=== PATIENT | female | born 1955 | race Caucasian/White ===

== ENCOUNTER 2020-07-05 22:43 | Inpatient (IN) | payer MEDICAID, SELFPAY ==
[2020-07-05] VITALS (10 sets, daily range): BP systolic 88–107; BP diastolic 62–82; PULSE 93–104; RESP 12–21; TEMP 36; O2SAT 97–98
--- NOTE | ~2020-07-05 | US_ITS ---
EXAMINATION: US venous doppler LE RT EXAM DATE: 07/08/2020 10:58 INDICATION: Right leg edema. TECHNIQUE: Multiple grayscale, color flow and Doppler images of the right lower extremity deep venous system were obtained and reviewed. There is no prior study for comparison. FINDINGS: The right common femoral, femoral and profunda veins demonstrate normal color flow, respira tory variation, augmentation and compressibility. Compressibility, color flow confirmed within the r ight popliteal, posterior tibial, peroneal, and greater saphenous veins. IMPRESSION: 1. No right lower extremity deep venous thrombosis. Reviewed, dictated and finalized at location B.
--- NOTE | ~2020-07-05 | XR_ITS ---
EXAMINATION: XR chest 1V portable EXAM DATE: 07/06/2020 00:15 INDICATION: Shortness of breath nausea vomiting diarrhea, weakness. TECHNIQUE: Portable AP frontal chest x-ray was obtained. There is no prior study for comparison. FINDINGS: Mildly indistinct reticulation in the left lung zone could be developing edema or pneumonia . Clinical correlation. No confluent consolidation, pneumothorax or pleural effusion suspected. There are no osseous abnormalities identified. IMPRESSION: Indistinct left perihilar reticulation, possible mild edema or pneumonia. Reviewed, dictated and finalized at location A. IMPRESSION: Indistinct left perihilar reticulation, possible mild edema or pneu monia.
--- NOTE | ~2020-07-05 | US_ITS ---
EXAMINATION: US right upper quadrant EXAM DATE: 07/06/2020 11:18 INDICATION: Elevated liver function tests. TECHNIQUE: Multiple grayscale and Doppler images of the abdomen right upper quadrant were obtained (angela y a technologist who performed the scan) and subsequently reviewed. There is no prior study for katie gonsales. FINDINGS: Small amount of perihepatic ascites. The pancreatic head and body are normal in appearance. The pancreatic tail is not visualized. The l iver has normal echogenicity and contour. There are no focal liver lesions identified. There is no evidence of intrahepatic biliary duct dilation. There is normal hepatopedal direction portal venous flow, but with pulsatile high resistance waveform , which could be being transmitted from the heart, right heart failure, or could indicate portal hype rtension. Diameter is 16 mm which is borderline dilated. The right middle and left hepatic veins demo nstrated normal color flow. No right-sided hydronephrosis. Common bile duct measures 4 mm, which is normal. The gallbladder fossa is unremarkable. IMPRESSION: 1. High resistance pulsatile portal venous Doppler signal. Could indicate portal hypertension or rig ht heart failure. 2. Small amount of nonspecific perihepatic fluid. Reviewed, dictated and finalized at location A. IMPRESSION: 1. High resistance pulsatile portal venous Doppler signal. Could indicate port al hypertension or right heart failure. 2. Small amount of nonspecific perihepatic fluid.
--- NOTE | ~2020-07-05 | US_ITS ---
EXAMINATION: US renal BI EXAM DATE: 07/06/2020 11:20 INDICATION: Renal insufficiency. TECHNIQUE: Multiple grayscale and Doppler images of the kidneys were obtained (by a technologist who performed the scan) and subsequently reviewed. There is no prior study for comparison. FINDINGS: Right kidney: There is normal contour and echogenicity. It measures 10.4 x 4.2 x 5.0 centimeters. T here are no focal renal lesions identified. There is no hydronephrosis. Left kidney: There is normal contour and echogenicity. It measures 10.8 x 5.3 x 5.3 centimeters. Th ere are no focal renal lesions identified. There is no hydronephrosis. The bladder is collapsed with wall thickening, small free pelvic fluid surrounding it. IMPRESSION: 1. Sonographically unremarkable kidneys. 2. Collapsed bladder could indicate renal failure, poorly functioning kidneys. 3. Bladder wall thickening could indicate acute or chronic cystitis. Reviewed, dictated and finalized at location A.
--- NOTE | ~2020-07-05 | NM_ITS ---
EXAMINATION: NM huyen stress w perfusion DATE: 07/09/2020 13:51 INDICATION: Elevated troponin. Atrial fibrillation prior inferior wall infarct. TECHNIQUE: Rest images were obtained following intravenous administration of 9.1 mCi Tc99m tetrofosmi n (Myoview). The patient was infused intravenously with Lexiscan (Regadenoson). Then, 31.77 mCi Tc99m tetrofosmin (Myoview) was administered intravenously, and stress images were obtained. Data was javier nstructed into short axis and horizontal and vertical long axis SPECT images. Gated SPECT images were also obtained. COMPARISON: None. FINDINGS: Large moderate severity nonreversible perfusion defect involving the apex, apical inferior, mid inferior, basilar inferior, mid inferolateral and basilar inferolateral segments. There is a mil d reversible perfusion defect involving the basilar anterolateral segment consistent with ischemia. T here is an additional mild reversible perfusion defect at the apical lateral segment. There is left v entricular enlargement with global hypokinesis and moderately decreased left ventricular ejection fra ction measuring 26%. IMPRESSION: 1. Small regions of reversible ischemia at the basilar anterolateral segment and apical lateral segme nt. 2. Large moderate severity infarct involving the apical, apical inferior, mid inferior, basilar infer ior, mid inferolateral and basilar inferolateral segments. 3. Small reversible perfusion defect at the 2. Left ventricular margin with global hypokinesis and moderately decreased ejection fraction measuri ng 25%. Reviewed, dictated and finalized at location A. IMPRESSION: 1. Small regions of reversible ischemia at the basilar anterolateral segment an d apical lateral segment. 2. Large moderate severity infarct involving the apical, apical inferior, mid i nferior, basilar inferior, mid inferolateral and basilar inferolateral segments . 3. Small reversible perfusion defect at the 2. Left ventricular margin with global hypokinesis and moderately decreased eje ction fraction measuring 25%.
--- NOTE | ~2020-07-05 | CT_ITS ---
EXAMINATION: CT abdomen pelvis w con EXAM DATE: 07/06/2020 01:34 INDICATION: Nausea and vomiting. TECHNIQUE: Spiral CT of the abdomen and pelvis was performed following intravenous injection of 100 m L Omnipaque 350. Axial, coronal and sagittal images were reviewed. The dose-length product (DLP) fo r this examination was 604.58 mGy-cm. The exposure was tailored according to patient size (auto mA e xposure control), and iterative reconstruction (ASIR) was used as additional dose reduction technique . There is no prior study for comparison. FINDINGS: Gallbladder not identified, patient likely has had cholecystectomy. There is fat stranding surroundin g the duodenum, in the gallbladder fossa, and mild fat stranding around the pancreatic head, in the r etroperitoneum. Periportal edema and small amount of perihepatic fluid. Liver, spleen, right adrenal gland unremarkable. There is a left adrenal gland nodule enhancing hete rogeneously measuring 4.0 cm, indeterminate. Should be further evaluated with abdominal MRI examinati on once acute symptoms resolve. Multiple pelvic calcifications probably phleboliths given there is no hydronephrosis. Portal and splenic veins are patent. Kidneys enhance symmetrically. There is no hy dronephrosis. The uterus is unremarkable. The bladder is unremarkable. There is no retroperitone al or pelvic lymphadenopathy. There is moderate to severe scattered arteriosclerotic disease with n arrowing of the mesenteric, renal arteries. Rectal prominence, could be prolapse but rectal cancer not excludable. The appendix is normal. The s tomach and small bowel are unremarkable. There is expected amount of colonic stool. No free intrap eritoneal gas. Borderline cardiomegaly. Small to moderate right, small left pleural effusions. Some interlobular septal thickening, appearance most consistent with mild pulmonary edema. The lung base s are unremarkable. There are no osteoblastic or osteolytic lesions identified. IMPRESSION: 1. Moderate amount of nonspecific fat stranding in the right upper quadrant, surrounding duodenum, i n the gallbladder fossa and around pancreatic head. Consider peptic ulcer disease, acute pancreatitis . No discrete duodenal wall edema identified. 2. Nonspecific periportal edema. 3. Indeterminate left adrenal gland lesion; follow-up nonemergent MRI recommended once acute symptom s resolve. 4. Small to moderate right, small left pleural effusions. Probable mild pulmonary edema. 5. Rectal prominence, could be prolapse but cancer not excludable. Reviewed, dictated and finalized at location A. IMPRESSION: 1. Moderate amount of nonspecific fat stranding in the right upper quadrant, s urrounding duodenum, in the gallbladder fossa and around pancreatic head. Consi jarett peptic ulcer disease, acute pancreatitis. No discrete duodenal wall edema i dentified. 2. Nonspecific periportal edema. 3. Indeterminate left adrenal gland lesion; follow-up nonemergent MRI recommen ded once acute symptoms resolve. 4. Small to moderate right, small left pleural effusions. Probable mild pulmon chantal edema. 5. Rectal prominence, could be prolapse but cancer not excludable.
--- NOTE | ~2020-07-05 | US_ITS ---
EXAMINATION: US art doppler w press SUNITA DELGADO EXAM DATE: 07/08/2020 10:58 INDICATION: Bilateral leg numbness. TECHNIQUE: Segmental pressures and plethysmographic and Doppler waveforms of the brachial and lower e xtremity arteries were obtained. There is no prior study for comparison. FINDINGS: Right and left brachial artery pressures of 83 mm Hg and 94 mm Hg, respectively, are concordant (norm al difference <= 30 mmHg). RIGHT LEG: The ankle-brachial index (ONOFRE) is 0.69 (normal >= 0.9-1). The great toe-brachial index (TBI) is 0.80 (normal >= 0.65). The lower extremity ratios, segmental pressure gradients as follows; Dorsalis pedis: 0.50 (47 mmHg). Posterior tibial: 0.69 (65 mmHg). (Normal gradients <= 20-30 mmHg between adjacent levels on the same leg or the same levels on the two legs). Arterial waveforms are biphasic through popliteal, monophas ic below. LEFT LEG: The ankle-brachial index (ONOFRE) is 0.64 (normal >= 0.9-1). The great toe-brachial index (TBI) is 0.78 (normal >= 0.65). The lower extremity ratios, segmental pressure gradients as follows; Dorsalis pedis: 0.64 (60 mmHg). Posterior tibial: 0.54 (51 mmHg). (Normal gradients <= 20-30 mmHg between adjacent levels on the same leg or the same levels on the two legs). Arterial waveforms are essentially monophasic. IMPRESSION: 1. Right ankle-brachial index 0.69 mildly decreased. 2. Left ankle-brachial index 0.64, mildly decreased. 3. Segmental pressures as above. Reviewed, dictated and finalized at location B.
--- NOTE | ~2020-07-05 | XR_ITS ---
XR chest 2V DATE: 07/08/2020 14:50 INDICATION: Congestive heart failure TECHNIQUE: AP and lateral views COMPARISON: 07/06/2020 portable AP chest FINDINGS: Cardiomegaly. Coronary atherosclerotic calcification. Mild aortic tortuosity. No hilar or m ediastinal enlargement. No pulmonary infiltrate or consolidation, pleural effusion or pulmonary vascu lar congestion or pneumothorax. Diffuse osteopenia. IMPRESSION: Cardiomegaly; no active pulmonary disease Reviewed, dictated and finalized at location A.
--- NOTE | 2020-07-05 23:05 | ECG_ITS ---
Measurements Intervals [place] Rate: 99 P: 43 PA: 184 QRS: -56 QRSD: 140 T: 116 QT: 396 QTc: 508 Interpretive Statements SINUS RHYTHM VENTRICULAR PREMATURE COMPLEX RIGHT BUNDLE BRANCH BLOCK LEFT ANTERIOR FASCICULAR BLOCK LEFT VENTRICULAR HYPERTROPHY AND ST-T CHANGE ST-T WAVE ABNORMALITY IN HIGH LATERAL LEADS- CONSIDER ISCHEMIA BASELINE WANDER- I, AVR, AVL, AVF, V1 ABNORMAL ECG Electronically Signed On 07-06-2020 7:30:30 CDT by Avinash Roman D.O.
--- NOTE | 2020-07-05 23:06 | ED.NAVMDI ---
HPI - Nausea/Vomiting/Diarrhea General Chief complaint: Nausea/Vomiting/Diarrhea Stated complaint: n/v Time Seen by Provider: 07/05/20 22:43 Source: patient Mode of arrival: EMS Limitations: no limitations History of Present Illness HPI Narrative: This patient is a 65 year old female with history of DM, HTN, CHF, and COPD who presents for evaluation of nausea and vomiting. She states she has been vomiting for the past 24 hours. She has decreased appetite, but she denies abdominal pain, or fever. She states she is not having diarrhea but her stools are slightly loose. She reports chronic sob and cough. She denies chest pain. She denies loss of taste or smell and she denies contact with covid positive person. MD elicited complaint: nausea and vomiting Related Data Home Medications Medication Instructions Recorded Confirmed furosemide 40 mg PO DAILY 07/05/20 07/06/20 hydrocodone-acetaminophen 1 tablet PO Q8H PRN 07/05/20 07/06/20 lisinopril 2.5 mg PO HS 07/05/20 07/06/20 metformin 500 mg PO BID 07/05/20 07/06/20 metoprolol succinate 25 mg PO DAILY 07/05/20 07/06/20 nicotine 1 patch TRANSDERMAL DAILY 07/05/20 07/06/20 potassium chloride 20 meq PO DAILY 07/05/20 07/06/20 Allergies Allergy/AdvReac Type Severity Reaction Status Date / Time No Known Allergies Allergy Verified 07/06/20 04:03 Review of Systems Review of Systems: All systems reviewed & are unremarkable except as noted in HPI and below Constitutional: Constitutional: Denies chills and Denies fever(s) Cardiovascular: Cardiovascular: Denies chest pain Respiratory: Respiratory: Reports cough (chronic) and Reports dyspnea (chronic) Gastrointestinal: Gastrointestinal: Denies abdominal pain, Denies diarrhea, Reports nausea and Reports vomiting Genitourinary: Genitourinary: Denies nocturia and Denies dysuria [facility] Past Medical History Medical History (Updated 07/06/20 @ 06:09 by Hina Yeung MD) CHF (congestive heart failure) COPD (chronic obstructive pulmonary disease) Diabetes mellitus Hypertension Surgical History Surgical History (Updated 07/05/20 @ 23:08 by Hina Yeung MD) History of cholecystectomy Social History Social History Smoking packs per day: 1 Smoking cigarettes per day: 20.0 Years smoked: 55 Smoking pack-years: 55.00 Smoking status: Heavy tobacco smoker Tobacco type: cigarettes Second hand tobacco smoke exposure: No Alcohol intake: former Substance use: current Substance use type: marijuana Last use: 07/04/20 Gender identity (if verbalized by the patient): Female Sexual Orientation (if Verbalized by the Patient): Straight or Heterosexual Spiritual care concerns: No Exam Const: General: alert and ill appearing Orientation/consciousness: patient oriented x3 HENMT: Head: normocephalic and atraumatic Face and sinus: sinuses nontender and normal transillumination of the sinuses Teeth and gingiva: edentulous Eyes: Pupils: Equal, round and reactive pupils present EOM: EOMs intact bilaterally Chest: Chest palpation & inspection: normal inspection of the chest Resp: Effort & Inspection: normal respiratory effort Auscultation: clear to auscultation bilaterally and diminished lung sounds Cardio: Rate: regular rate Rhythm: regular rhythm Heart sounds: no murmurs GI: GI Palp: Yes Soft to palpation, No Tenderness to palpation present (GI), No Guarding due to palpation present (GI) and No Rigid due to palpation Skin: General skin exam: normal color Rashes: no rashes Neuro: General: patient oriented x3 and moves all extremities Extrem: General: normal to inspection and no pedal edema Psych: Mental Status: mental status grossly normal Affect: normal affect Course Reevaluation(s) Reevaluation #1: PAtient has no complaints. She denies nausea and vomiting. She will be admitted for evaluation of lactic acidosis, duodenitis. Lactic acidosis may be from her metformin.
[2020-07-05] MEDS: SODIUM CHLORIDE 0.9% IV 500 ML 999 ML IV CONT (23:35)
[2020-07-05] MEDS: ONDANSETRON INJ 4 MG/2 ML VIAL IV PUSH (23:35)
[2020-07-05 23:45] LABS: Alveolar/Arterial O2 Gradient 31.2 mmHg; Carboxyhemoglobin 1.3 % THb (0-2.0); Fractional Inspired Oxygen 21 %; HCO3 ABG 17.2 mEq/l (22.0-26.0); Methemoglobin ABG 0.3 %THb (0-1.5); Oxygen Content ABG 21.3 %vol (16.0-22.0); Oxygen Saturation ABG 95.5 % (95.0-100.0); Oxyhemoglobin 93.9 % THb (90.0-100.0); PCO2 ABG 31.8 mmHg (35.0-45.0); PO2 ABG 80.5 mmHg (80.0-100.0); PO2 FiO2 Ratio Arterial Blood 3.83 %; Reduced Hemoglobin 4.5 %THb (0-5.0); Total Hemoglobin 16.1 g/dL (12.0-18.0); pH ABG 7.352 (7.350-7.450)
[2020-07-05 23:46] LABS: Device ROOM AIR; Modified Allen's Test Pass; Site Drawn LEFT BRACHIAL
[2020-07-06] VITALS (39 sets, daily range): BP systolic 92–121; BP diastolic 59–98; PULSE 93–106; RESP 16–25; TEMP 35.9–36.8; O2SAT 92–100; BMI 26.5
[2020-07-06 00:02] LABS: Basophils Percent Auto 0.2 % (0.2-1.2); Hematocrit 47.1 % (37.0-47.0); Hemoglobin 15.8 g/dL (12.0-15.0); Immature Granulocyte Absolute 0.12 K/mm3 (0.00-0.031); Immature Granulocyte Percent A 0.7 % (0-0.5); Lymphocytes Absolute Auto 1.59 K/mm3 (0.9-3.2); Lymphocytes Percent Auto 9.5 % (18.3-44.2); Mean Corpuscular HGB Conc 33.5 g/dl (32-36); Mean Corpuscular Hemoglobin 31.9 pg (26-34); Mean Platelet Volume 11.5 fl (7.4-10.4); Monocytes Absolute Auto 0.9 K/mm3 (0.1-0.6); Monocytes Percent Auto 5.2 % (2.6-8.5); Neutrophils Absolute Auto 14.1 K/mm3 (1.3-6.7); Neutrophils Percent Auto 84.4 % (45.5-73.1); Platelet Count Result 266 k/mm3 (150-375); Red Blood Count 4.96 M/mm3 (4.2-5.4); Red Cell Distribution Width 14.3 % (11.5-14.5); White Blood Count 16.7 K/mm3 (4.5-10.0)
[2020-07-06 00:10] LABS: Add Urine Microscopic? YES; Appearance Urine Cloudy (Clear); Bilirubin Urine 1+ (Negative); Blood Urine Negative (Negative); Color Urine Amber (Yellow); Glucose Urine UA 3+ mg/dL (Negative); Ketones Urine Negative (Negative); Leukocyte Esterase Ur Negative LEU/UL (Negative); Mucus Urine Few /lpf; Nitrate Urine Negative (Negative); Protein Urine 2+ mg/dL (Negative); Specific Grav Ur 1.021 (1.001-1.035); Squamous Epithelial Cell Urine Moderate /hpf (Few)
--- NOTE | 2020-07-06 00:12 | PC.NURSE ---
Patient's son calls to get an update on patient. He leaves his phone number [phone].
[2020-07-06 00:16] LABS: Alanine Aminotransferase 55 U/L (4-35); Albumin Level 3.9 g/dL (3.5-5.1); Alkaline Phosphatase 75 U/L (38-126); Anion Gap 14 mmol/L (8-16); Aspartate Amino Transferase 344 U/L (14-36); Bilirubin,Total 1.8 mg/dL (0.2-1.3); Blood Urea Nitrogen 22 mg/dL (7-17); Calcium 9.5 mg/dL (8.4-10.2); Carbon Dioxide 23 mmol/L (22-30); Chloride 99 mmol/L (98-107); Estimated CRCL calculation 30 ml/min; Estimated Glomerular Filt Rate 38; Glucose 379 mg/dL (65-105); Lipase 25 U/L (23-300); Potassium 4.3 mmol/L (3.4-5.0); Sodium 136 mmol/L (137-145)
[2020-07-06] MEDS: SODIUM CHLORIDE 0.9% IV 1,000 ML 999 ML IV CONT (00:53)
[2020-07-06] MEDS: METOCLOPRAMIDE HCL INJ 10 MG/2 ML VIAL IV PUSH (00:54)
[2020-07-06 02:05] LABS: Lactic Acid Reflex 5.8 mmol/L (0.7-2.1)
[2020-07-06 02:06] LABS: Creatine Kinase 1366 U/L (30-135)
[2020-07-06] MEDS: PANTOPRAZOLE SODIUM IV 40 MG VIAL IV PUSH ×3 (03:14→21:27)
--- NOTE | 2020-07-06 03:14 | PC.NURSE ---
Lab contacted, Carmen stated she will be up to draw patient's blood cultures.
--- NOTE | 2020-07-06 03:28 | PC.NURSE ---
Patient ER and taken to the floor at 0328.
--- NOTE | 2020-07-06 03:48 | PC.NURSE ---
This patient, Courtney Guzman, was admitted to IMU Room 231-01 on 07/06/20 at 0334. Patient/family oriented to hospital policies and general routines including ID bracelet, bed and alarms, visiting hours, pain management, procedures, bathroom and other care routines, personal items, smoking policy, room service/diet, and visiting hours. Valuables list has been completed. Information on how to activate the Rapid Response Team has been discussed. Patient/Family are encouraged to report perceived risks to care and to ask questions if they do not understand what they are told or what they should do.
[2020-07-06] MEDS: SODIUM CHLORIDE 0.9% IV 1,000 ML 75 ML IV CONT ×2 (04:20→17:30)
[2020-07-06 04:26] LABS: Reflex Lactic Acid Yes or No Add Lactic
[2020-07-06] MEDS: ONDANSETRON INJ 4 MG/2 ML VIAL IV PUSH (05:12)
[2020-07-06 05:17] LABS: Lactic Acid 3.8 mmol/L (0.7-2.1)
--- NOTE | 2020-07-06 07:42 | PM.IMHP ---
H&P: HPI History of Present Illness Date/Time: 07/06/20 07:42 THIS PATIENT WAS PLACED IN OBSERVATION Chief complaint: nausea, vomiting, lactic acidosis Narrative: Courtney Guzman is a 65 year old female with CHF, COPD and DM here for nausea and vomiting. Patient developed soft stools about 2 days prior to admission. No katt diarrhea. She was having 2-3 bowel movements a day. One day prior to admission, patient developed nausea and vomiting. She denies any abdominal pain. She denies hematemesis. No fever or chills. No melena or hematochezia. She has never had a colonoscopy or EGD. No dysuria or hematuria. No new medications. She does not believe the nausea was related to food that she ate. Tried Pepto-Bismol without benefit. Nothing seemed to make the nausea better or worse. She is unsure if the nausea worsened with food. She has a chronically poor appetite. She states she has lost about 100 lb over the past 2 years and possibly 30 lb this year. She has a chronic, nonproductive cough but this is no change recently. She also has shortness of breath at times usual worse with activity. Again no changes in the shortness of breath chronicity. No chest pain or palpitations. She is having financial difficulties. She lost her job and is going through a divorce. She has been staying with friends sleeping on the couch over the past few days since she was unable to afford her rent around the beginning of the month. She does take her medications off and on even when there is no financial issue. She denies weakness in her arms or legs. She does have peripheral neuropathy with numbness and tingling in her feet related to the DM. No history of seizures or strokes. She does not check her glucose at home. She does have depression at times but has not been diagnosed with this. No loss of taste or smell. She denies COVID exposure. No myalgias. Last hospitalized at [facility] 2 months ago for 'breathing problems'. No claudication symptoms. No vision changes, odynophagia or dysphagia. No hx or exposure to HIV or hepatitis. She presented to the emergency room with complaints of persistent nausea and vomiting. In the emergency room patient was hemodynamically stable. She was mildly tachycard[place] [address]. glucose was 379. Lactic acid was 5.8. Creatinine 1.4. Her AST and ALT were elevated. Her total creatinine kinase was 1366. Lipase was normal. Urinalysis showed 3+ glucose and 3-5 red cells but negative for blood. Chest x-ray appears clear. CT scan showing either peptic ulcer disease or gastritis / duodenitis. Incidental finding of a left adrenal lesion. Peripheral arterial disease noted as well. Patient was treated with IV fluids, Reglan, Zofran. Protonix and started on Zosyn. She was admitted for further care. Repeat lactic acid level has improved. Review of Systems Review of Systems: All systems reviewed & are unremarkable except as noted in HPI and below PMFSH Past Medical History Medical History (Updated 07/08/20 @ 08:45 by Clinton Dudley MD) Abnormal CT scan, gastrointestinal tract Arthritis CHF (congestive heart failure) Chronic pain syndrome related to hand arthritis COPD (chronic obstructive pulmonary disease) Diabetes mellitus Hypertension Peripheral neuropathy Weight loss Surgical History Surgical History History of x2 History of cholecystectomy History of D&C Family History Family History Mother Diabetes mellitus Acute myocardial infarction Congestive heart failure TIA (transient ischemic attack) Hypertension Sibling Congestive heart failure Chronic obstructive pulmonary disease Diabetes mellitus Social History Social History (Updated 07/06/20 @ 08:41 by Clinton Dudley MD) Social History: patient smokes a pack a day for past 55 years. She drank
[2020-07-06 08:40] LABS: Glucose Point of Care 262 (65-105)
[2020-07-06] MEDS: INSULIN ASPART (*BKC) 100 UNITS/ML SUB-Q (09:30)
[2020-07-06 09:55] LABS: Hemoglobin A1C 8.1 % (<5.7)
[2020-07-06 10:02] LABS: Bilirubin Indirect 0.9 mg/dL (0-1.1); Cholesterol 176 mg/dL (0-200); HDL Direct 49 mg/dL; Lactic Acid Reflex 2.8 mmol/L (0.7-2.1); Triglycerides 149 mg/dL (<150)
[2020-07-06 10:13] LABS: LDL Cholesterol Direct 86 mg/dL
[2020-07-06 10:51] LABS: Hepatitis B Surface Antigen Negative (Negative)
[2020-07-06 10:53] LABS: Thyroid Stimulating Hormone Reflex 0.553 uIU/mL (0.465-4.68)
[2020-07-06 10:57] LABS: HAV RESULT Negative (Negative); Hepatitis B Core IgM Result Negative (Negative)
[2020-07-06 11:08] LABS: Hepatitis C Virus Antibody Negative (Negative)
--- NOTE | 2020-07-06 11:52 | WPDGICN ---
Assessment and Plan Assessment and plan (1) Nausea & vomiting: Code(s): R11.2 - Nausea with vomiting, unspecified Status: Acute Assessment and Plan: probably peptic ulcer disease (abnormal CT scan in duodenum), ppi for now. She also had elevated lactic acid with liver enzymes, will trend continue with supportive care, ppi and will do EGD on Wednesday no signs of bleeding (2) Abnormal CT scan, gastrointestinal tract: Code(s): R93.3 - Abnormal findings on diagnostic imaging of other parts of digestive tract Status: Acute Assessment and Plan: duodenum but also in rectum (patient denies obvious prolapse, change in bowel habits but she never had a colonoscopy), also concerning weight loss. (3) Leukocytosis: Code(s): D72.829 - Elevated white blood cell count, unspecified Status: Acute Assessment and Plan: continue with supportive care, no fever trend labs blood cultures pending (4) Rhabdomyolysis: Code(s): M62.82 - Rhabdomyolysis Status: Acute Assessment and Plan: no history of falls repeat in am (5) Acidosis, lactic: Code(s): E87.2 - Acidosis Status: Acute Assessment and Plan: trending down, no abdominal pain (6) Elevated LFTs: Code(s): R79.89 - Other specified abnormal findings of blood chemistry Status: Acute Assessment and Plan: hepatitis panel negative, no etoh abuse monitor and trend labs (7) Renal insufficiency: Code(s): N28.9 - Disorder of kidney and ureter, unspecified Status: Acute Assessment and Plan: probably dehydration, supportive care (8) Tobacco abuse: Code(s): Z72.0 - Tobacco use Status: Acute Assessment and Plan: quit smoking (9) COPD (chronic obstructive pulmonary disease): Code(s): J44.9 - Chronic obstructive pulmonary disease, unspecified Status: Acute GI Consult Note Consult date/time: 07/06/20 11:52 Reason for consult: N/V, weight loss, abnormal CT scan a/p HPI: Courtney Guzman is a 65 year old female with history of CHF, COPD, smoker and DM who came to hospital with 2 days of intractable nausea and vomiting. She tried Pepto-Bismol without benefit, also has poor appetite and has lost about 100 lb over the past 2 years. Denies sick contacts. 2 days ago had soft stools but no diarrhea, she says that at baseline she is regular. Denies eoth abuse, no history of liver disease, no sick contacts. Blood work in ER showed wbc 16k, lactic acid 5 now down to 2.8, also elevated transaminases with bili 1.8, CK 1300 (denies h/o falls) and normal lipase, hepatitis negative. Also abnormal CT scan a/p that showed moderate amount of nonspecific fat stranding in the right upper quadrant, surrounding duodenum, in the gallbladder fossa and around pancreatic head, indeterminate left adrenal gland lesion, rectal prominence, could be prolapse but cancer not excludable. She was admitted to hospital, today she is feeling better but still with lack of appetite. She denies any abdominal pain, fever, chills, melena or hematochezia. She has never had a colonoscopy or EGD. Review of Systems Constitutional: Constitutional: Reports fatigue, Denies headache(s), Reports poor appetite and Reports weight loss Eyes: Eyes: Denies blurry vision ENT: Reports Normal hearing present, Denies headache(s) and Denies neck pain Cardiovascular: Cardiovascular: Denies chest pain and Denies dyspnea Respiratory: Respiratory: Denies dyspnea Gastrointestinal: Gastrointestinal: Denies abdominal pain, Reports nausea and Reports vomiting Genitourinary: Genitourinary: Denies flank pain Musculoskeletal: Musculoskeletal: Denies neck pain Integumentary/Breasts: Skin/Breast: Denies dry skin Neurologic: Reports Normal hearing present, Denies headache(s) and Denies weakness Psychiatric: Psychiatric: Reports depression Endocrine: Endocrine: Denies change in body appearance Hematologic/Lymph
[2020-07-06 12:43] LABS: Reflex Lactic Acid Yes or No Add Lactic
[2020-07-06 12:47] LABS: Glucose Point of Care 227 (65-105)
[2020-07-06 13:22] LABS: Folic Acid 9.9 ng/mL (2.76->20)
[2020-07-06 13:43] LABS: Lactic Acid 2.4 mmol/L (0.7-2.1)
[2020-07-06 16:36] LABS: Glucose Point of Care 77 (65-105)
[2020-07-06 20:25] LABS: Glucose Point of Care 162 (65-105)
[2020-07-07] VITALS (18 sets, daily range): BP systolic 90–111; BP diastolic 65–78; PULSE 75–100; RESP 16–24; TEMP 35.8–36.6; O2SAT 92–99
--- NOTE | 2020-07-07 00:07 | PCRCNOTE ---
Apnea link terminated after multiple attempts. Patient removed apnea link repeatedly.
[2020-07-07 00:17] LABS: Glucose Point of Care 157 (65-105)
[2020-07-07 05:29] LABS: Basophils Percent Auto 0.1 % (0.2-1.2); Hematocrit 43.4 % (37.0-47.0); Hemoglobin 14.5 g/dL (12.0-15.0); Immature Granulocyte Absolute 0.09 K/mm3 (0.00-0.031); Immature Granulocyte Percent A 0.5 % (0-0.5); Lymphocytes Percent Auto 8.6 % (18.3-44.2); Mean Corpuscular HGB Conc 33.4 g/dl (32-36); Mean Corpuscular Hemoglobin 31.7 pg (26-34); Mean Corpuscular Volume 94.8 fl (80-100); Monocytes Absolute Auto 1.1 K/mm3 (0.1-0.6); Monocytes Percent Auto 6.5 % (2.6-8.5); Neutrophils Absolute Auto 14.6 K/mm3 (1.3-6.7); Neutrophils Percent Auto 84.3 % (45.5-73.1); Platelet Count Result 219 k/mm3 (150-375); Red Blood Count 4.58 M/mm3 (4.2-5.4); Red Cell Distribution Width 14.3 % (11.5-14.5); White Blood Count 17.4 K/mm3 (4.5-10.0)
[2020-07-07] MEDS: ONDANSETRON INJ 4 MG/2 ML VIAL IV PUSH ×3 (06:05→21:10)
[2020-07-07 06:13] LABS: Glucose Point of Care 163 (65-105)
[2020-07-07 06:47] LABS: Alanine Aminotransferase 394 U/L (4-35); Albumin Level 3.5 g/dL (3.5-5.1); Alkaline Phosphatase 70 U/L (38-126); Anion Gap 14 mmol/L (8-16); Aspartate Amino Transferase 626 U/L (14-36); Bilirubin,Total 1.4 mg/dL (0.2-1.3); Blood Urea Nitrogen 31 mg/dL (7-17); CRP 7.1 mg/dL (<1.0); Calcium 8.9 mg/dL (8.4-10.2); Carbon Dioxide 17 mmol/L (22-30); Chloride 99 mmol/L (98-107); Creatine Kinase 497 U/L (30-135); Estimated CRCL calculation 40 ml/min; Estimated Glomerular Filt Rate 45; Glucose 150 mg/dL (65-105); Magnesium 1.8 mg/dL (1.6-2.3); Phosphorus 4.5 mg/dL (2.5-4.5); Potassium 4.5 mmol/L (3.4-5.0); Sodium 130 mmol/L (137-145)
[2020-07-07 06:48] LABS: Lactate Dehydrogenase 3177 U/L (313-618)
[2020-07-07] MEDS: oxyCODONE HCL (*CRX) 5 MG TAB IR PO ×3 (08:38→21:10)
[2020-07-07] MEDS: PANTOPRAZOLE SODIUM IV 40 MG VIAL IV PUSH ×2 (08:38→21:10)
--- NOTE | 2020-07-07 11:30 | WPDGIPROGNO ---
Progress Note: A&P Assessment and Plan (1) Nausea & vomiting: Code(s): R11.2 - Nausea with vomiting, unspecified Status: Acute Assessment and Plan: still nauseous, abnormal CT scan ? duodenitis, also noted elevated liver enzymes will do egd tomorrow (2) Elevated LFTs: Code(s): R79.89 - Other specified abnormal findings of blood chemistry Status: Acute Assessment and Plan: denies etoh abuse however ast/alt>2, ultrasound showed igh resistance pulsatile portal venous Doppler signal. Could indicate portal hypertension or right heart failure, will assess tomorrow with egd if varices or PHG ? cirrhosis if no major findings and still elevated lft's then consider mrcp (also found lesion in adrenal gland and radiologist recommending mri at some point) hepatitis panel negative (3) Abnormal CT scan, gastrointestinal tract: Code(s): R93.3 - Abnormal findings on diagnostic imaging of other parts of digestive tract Status: Acute Assessment and Plan: she also needs a colonoscopy, will do it tomorrow h/o weight loss and abnormal finding in rectum (4) Duodenitis: Code(s): K29.80 - Duodenitis without bleeding Status: Acute Assessment and Plan: on ppi for now, antiemetics prn lipase was normal (5) Weight loss: Code(s): R63.4 - Abnormal weight loss Status: Acute (6) Leukocytosis: Code(s): D72.829 - Elevated white blood cell count, unspecified Status: Acute Assessment and Plan: still high, also high crp normal lactic acid today on antibiotics Subjective Date/time seen: 07/07/20 11:30 Interval history: she is still nauseous today. Review of Systems Review of Systems: All systems reviewed & are unremarkable except as noted in HPI and below Exam Const: General: comfortable and no acute distress HENMT: General nose exam: Normal nares present Eyes: General: appearance normal, both eyes and all related structures Neck: Neck: no JVD Resp: Auscultation: clear to auscultation bilaterally Cardio: Rate: regular rate Rhythm: regular rhythm GI: Inspection: non-distended GI Palp: Yes Soft to palpation Skin: General skin exam: normal color Neuro: General: gait normal Speech: normal speech Extrem: General: normal to inspection Psych: Mental Status: mental status grossly normal Objective Data Vital Signs Vital Signs: Vital Signs - 24 hr 07/06/20 12:00 07/06/20 12:55 07/06/20 14:00 Temperature 96.9 F L Pulse Rate 94 96 102 H Respiratory Rate 20 Blood Pressure 107/77 Pulse Oximetry 100 07/06/20 16:00 07/06/20 16:53 07/06/20 18:00 Temperature 96.8 F L Pulse Rate 103 H 100 101 H Respiratory Rate 21 H Blood Pressure 92/71 L Pulse Oximetry 99 07/06/20 19:50 07/06/20 20:00 07/06/20 22:00 Temperature 97.5 F L Pulse Rate 100 100 101 H Respiratory Rate 20 20 Blood Pressure 94/60 L Pulse Oximetry 99 99 07/06/20 23:43 07/07/20 00:00 07/07/20 01:54 Temperature 97.5 F L Pulse Rate 100 100 100 Respiratory Rate 20 20 Blood Pressure 93/71 L Pulse Oximetry 92 92 07/07/20 03:22 07/07/20 04:00 07/07/20 06:00 Temperature 97.7 F Pulse Rate 94 94 99 Respiratory Rate 16 16 Blood Pressure 111/65 Pulse Oximetry 99 99 07/07/20 08:50 Temperature 96.4 F L Pulse Rate 94 Respiratory Rate 16 Blood Pressure 110/74 Pulse Oximetry 97 Intake/Output Intake/Output: Intake & Output 07/04/20 07/05/20 07/06/20 07/07/20 23:59 23:59 23:59 23:59 Intake Total 4250 350 Output Total 50 500 200 Balance -50 3750 150 Meds/Results Medications: Active Medications Generic Name Dose Route Start Last Admin Trade Name Freq PRN Reason Stop Dose Admin Dextrose 12.5 gm 07/06/20 09:11 Dextrose 50% Syringe IV PUSH PRN PRN Hypoglycemia Protocol Glucagon 1 mg 07/06/20 09:11 Glucagon For Inj IM PRN PRN Hypoglycemia Protocol Glucos
[2020-07-07 12:19] LABS: Glucose Point of Care 250 (65-105)
[2020-07-07] MEDS: INSULIN ASPART (*BKC) 100 UNITS/ML SUB-Q ×2 (13:11→17:26)
--- NOTE | 2020-07-07 14:04 | PM.IMPN ---
Progress Note: A&P Assessment and Plan (1) Sepsis: Code(s): A41.9 - Sepsis, unspecified organism Status: Acute Assessment and Plan: Patient with sepsis symptoms present on admission with elevated white count tachycardia and lactic acidosis. Lactic acid level trended down to normal. Etiology probably related to upper GI etiology. Consider gastritis or gastroenteritis or pancreatitis. Continue Zosyn for now. Follow white count (2) Nausea & vomiting: Code(s): R11.2 - Nausea with vomiting, unspecified Status: Acute Assessment and Plan: Patient with persistent nausea and vomiting that appears to be self-induced. She was educated in the benefits of not performing self induced vomiting. Continue current diet. Zofran available as needed for nausea. (3) Duodenitis: Code(s): K29.80 - Duodenitis without bleeding Status: Acute Assessment and Plan: CT scan showing moderate amount of nonspecific fat stranding in the right upper quadrant surrounding the duodenum, in the gallbladder fossa and around pancreatic head. Consider peptic ulcer disease, acute pancreatitis. Cannot exclude peptic ulcer disease. Appreciate GI input. Repeat Lipase. Continue Protonix. Continue IV antibiotics for now. EGD planned for tomorrow. [place] also planned since CT scan also showing rectal prominence. (4) Elevated LFTs: Code(s): R79.89 - Other specified abnormal findings of blood chemistry Status: Acute Assessment and Plan: AST and ALT are elevated with some of this related to the rhabdomyolysis. CT showing unremarkable liver She also has evidence of inflammatory changes around the liver which is contributing to this finding as well. AST now up to 626 and ALT 394 but TB down. LDH 3177. Consider malignancy of the biliary system. Appreciate GI input. Consider also hepatic congestion from her CHF but not significantly fluid overloaded by exam. Stop IV fluids. Repeat Lipase. (5) Rhabdomyolysis: Code(s): M62.82 - Rhabdomyolysis Status: Acute Assessment and Plan: Patient with mild rhabdomyolysis of unclear etiology. No myalgias. No recent falls or prolonged bedrest. Total CK is 1366 on admission but better at 497 today. She is not on statin therapy. Stop IV fluids. Monitor total CK. (6) Acidosis, lactic: Code(s): E87.2 - Acidosis Status: Acute Assessment and Plan: Patient with a lactic acidosis of 5.8 on admission. PH is normal. Etiology unclear but consider bowel ischemia versus sepsis. Repeat lactic acid is better at 2.0. Metformin stopped. (7) Leukocytosis: Code(s): D72.829 - Elevated white blood cell count, unspecified Status: Acute Assessment and Plan: White count 16K on admission. Related to above. Repeat WBC about the same. Continue to monitor. (8) COPD (chronic obstructive pulmonary disease): Code(s): J44.9 - Chronic obstructive pulmonary disease, unspecified Status: Acute Assessment and Plan: No wheezing on exam. Patient currently on room air. Will have nebulizer treatments available as needed. (9) Diabetes mellitus: Code(s): E11.9 - Type 2 diabetes mellitus without complications Status: Acute Assessment and Plan: A1c 8.1. Glucose 379 on admission. 3+ glucose noted in her urine. Patient is only on metformin at home which by history she takes intermittently (stopped due to the lactic acidosis). She has tinea noted on exam possibly a complication from her uncontrolled diabetes. Glucose reviewed on 07/07 Glucose reasonably well controlled. Continue AccuCheks covering with sliding scale. Hypoglycemia protocol available as needed. Continue current medications. (10) Hypertension: Code(s): I10 - Essential (primary) hypertension Status: Acute Assessment and Plan: Blood pressure soft but fluid responsive. We hav
[2020-07-07 16:56] LABS: Glucose Point of Care 202 (65-105)
[2020-07-07 17:14] LABS: Lipase 21 U/L (23-300)
[2020-07-07] MEDS: polyethylene glycoL 3350 238 GM BOTTLE PO (17:26)
[2020-07-07] MEDS: BISACODYL 5 MG TABLET EC 20 MG PO (17:34)
[2020-07-07] MEDS: TOLNAFTATE 1% POWDER 45 GM BTL 1 APPLIC TOPICAL (21:10)
--- NOTE | 2020-07-07 21:53 | PCRCNOTE ---
Patient scheduled for repeat apnea link because she removed it twice last night. Per nurse, patient will be up tonight doing a colonoscopy prep so apnea link cannot be performed tonight.
[2020-07-07 23:04] LABS: Glucose Point of Care 200 (65-105)
[2020-07-08] VITALS (20 sets, daily range): BP systolic 94–113; BP diastolic 48–83; PULSE 68–148; RESP 16–22; TEMP 35.2–36.6; O2SAT 93–100
[2020-07-08 04:55] LABS: Hematocrit 42.6 % (37.0-47.0); Hemoglobin 14.7 g/dL (12.0-15.0); Mean Corpuscular HGB Conc 34.5 g/dl (32-36); Mean Corpuscular Hemoglobin 31.7 pg (26-34); Mean Platelet Volume 11.6 fl (7.4-10.4); Platelet Count Result 214 k/mm3 (150-375); Red Blood Count 4.63 M/mm3 (4.2-5.4); Red Cell Distribution Width 14.3 % (11.5-14.5); White Blood Count 13.9 K/mm3 (4.5-10.0)
[2020-07-08 05:08] LABS: Glucose Point of Care 217 (65-105)
[2020-07-08 05:16] LABS: Lactic Acid Reflex 1.5 mmol/L (0.7-2.1)
[2020-07-08] MEDS: MAGNESIUM CITRATE 300 ML BTL PO (05:16)
[2020-07-08] MEDS: INSULIN ASPART (*BKC) 100 UNITS/ML SUB-Q ×3 (05:17→23:23)
[2020-07-08 05:23] LABS: Alanine Aminotransferase 449 U/L (4-35); Albumin Level 3.5 g/dL (3.5-5.1); Alkaline Phosphatase 106 U/L (38-126); Anion Gap 11 mmol/L (8-16); Aspartate Amino Transferase 373 U/L (14-36); Bilirubin,Total 1.4 mg/dL (0.2-1.3); Blood Urea Nitrogen 37 mg/dL (7-17); Carbon Dioxide 20 mmol/L (22-30); Chloride 98 mmol/L (98-107); Creatine Kinase 147 U/L (30-135); Estimated CRCL calculation 37 ml/min; Estimated Glomerular Filt Rate 41; Glucose 232 mg/dL (65-105); Potassium 3.8 mmol/L (3.4-5.0); Sodium 129 mmol/L (137-145)
[2020-07-08 05:24] LABS: Lactate Dehydrogenase 2369 U/L (313-618)
--- NOTE | 2020-07-08 05:29 | ECG_ITS ---
Measurements Intervals [place] Rate: 131 P: MD: 0 QRS: 251 QRSD: 142 T: 87 QT: 323 QTc: 477 Interpretive Statements ATRIAL FIBRILLATION WITH RAPID VENTRICULAR RESPONSE RIGHT AXIS DEVIATION RIGHT BUNDLE BRANCH BLOCK HIGH LATERAL INFARCT, AGE INDETERMINATE INFERIOR INFARCT, AGE INDETERMINATE ABNORMAL ECG Electronically Signed On 07-08-2020 6:58:07 CDT by Avinash Roman D.O.
[2020-07-08] MEDS: dilTIAZem HCl INJ 25 MG/5 ML VIAL 10 MG IV PUSH (06:00)
--- NOTE | 2020-07-08 08:20 | PM.IMPN ---
Progress Note: A&P Assessment and Plan (1) Atrial fibrillation with rapid ventricular response: Code(s): I48.91 - Unspecified atrial fibrillation Status: Acute Assessment and Plan: HR became elevated overnight and found to have AFib/RVR. She denies any hx of this but she seems unsure of her medical hx. No old records yet. TSH normal here. HR better controlled with Diltiazem. Cardiology consulted. Echo ordered. Add back low dose metoprolol. Check Troponins. (2) Sepsis: Code(s): A41.9 - Sepsis, unspecified organism Status: Acute Assessment and Plan: Patient with sepsis symptoms present on admission with elevated white count tachycardia and lactic acidosis with soft BP. Lactic acid level trended down to normal. UA noted but probably contaminated specimen. BCx NGTD. CXR noted but doubt PNA. Etiology probably related to upper GI etiology. Consider gastritis/duodentis or gastroenteritis. LDH very high for unclear reasons. Rhabdo can contribute to this. No evidence of hemolysis. Concern for underlying malignancy. Continue Zosyn for now. Follow white count. (3) Nausea & vomiting: Code(s): R11.2 - Nausea with vomiting, unspecified Status: Acute Assessment and Plan: Patient with persistent nausea and vomiting that appears to be self-induced. She was educated about the benefits of not performing self induced vomiting. NPO currently. Zofran available as needed for nausea. (4) Abnormal CT scan, gastrointestinal tract: Code(s): R93.3 - Abnormal findings on diagnostic imaging of other parts of digestive tract Status: Acute Assessment and Plan: CT scan showing moderate amount of nonspecific fat stranding in the right upper quadrant surrounding the duodenum, in the gallbladder fossa and around pancreatic head. Consider peptic ulcer disease. RUQ US more benign findings. Repeat Lipase normal. Continue Protonix. Continue IV antibiotics for now. EGD planned but defer to GI about timing. [place] also planned since CT scan also showing rectal prominence. Appreciate GI input. (5) Elevated LFTs: Code(s): R79.89 - Other specified abnormal findings of blood chemistry Status: Acute Assessment and Plan: AST and ALT are elevated with some of this related to the rhabdomyolysis. CT showing unremarkable liver. She does have evidence of inflammatory changes around the liver which is contributing to elevated LFTs as well. RUQ US showing the liver has normal echogenicity and contour. There are no focal liver lesions identified. There is no evidence of intrahepatic biliary duct dilation. Hepatitis panel negative. AST better at 373 but ALT up to 449. LDH now 2370. TB unchanged at 1.4. Consider malignancy of the biliary system or inflammatory from duodenitis/PUD/penetrating ulcer. Consider also hepatic congestion given the abd US findings since patient was on IV fluids recently. Patient not significantly fluid overloaded by exam. Repeat Lipase remains normal. Appreciate GI input. Consider MRCP to further define if etiology still in question. (6) Rhabdomyolysis: Code(s): M62.82 - Rhabdomyolysis Status: Acute Assessment and Plan: Patient with mild rhabdomyolysis of unclear etiology. No myalgias. No recent falls or prolonged bedrest. Total CK is 1366 on admission but better at 147 today. She is not on statin therapy. Monitor closely if statin started. (7) Acidosis, lactic: Code(s): E87.2 - Acidosis Status: Acute Assessment and Plan: Patient with a lactic acidosis of 5.8 on admission. PH is normal. Etiology unclear but consider bowel ischemia versus sepsis. Repeat lactic acid is better at 1.5 today. Metformin stopped. Continue Zosyn. (8) Leukocytosis: Code(s): D72.829 - Elevated white blood cell count, unspecified Status: Acute Assessment and Plan: White cou
[2020-07-08] MEDS: TOLNAFTATE 1% POWDER 45 GM BTL 1 APPLIC TOPICAL ×2 (10:31→20:59)
[2020-07-08] MEDS: PANTOPRAZOLE SODIUM IV 40 MG VIAL IV PUSH ×2 (10:31→20:58)
[2020-07-08] MEDS: METOPROLOL TARTRATE 12.5 MG TABLET PO ×2 (10:32→20:58)
[2020-07-08 11:04] LABS: Iron 72 ug/dL (37-170)
[2020-07-08 11:13] LABS: Percent Iron Saturation 26 % (20-50)
--- NOTE | 2020-07-08 11:51 | ECG_ITS ---
Measurements Intervals [place] Rate: 76 P: 40 [place]: 181 QRS: -61 QRSD: 133 T: 89 QT: 411 QTc: 464 Interpretive Statements SINUS RHYTHM VENTRICULAR PREMATURE COMPLEXES LEFT AXIS DEVIATION RIGHT BUNDLE BRANCH BLOCK POOR R WAVE PROGRESSION, ANTERIOR LEADS INFERIOR INFARCT, AGE INDETERMINATE BORDERLINE ST-T WAVE ABNORMALITY- HIGH LATERAL LEADS ABNORMAL ECG Electronically Signed On 07-08-2020 12:09:49 CDT by Avinash Roman D.O.
--- NOTE | 2020-07-08 12:17 | WPDANESEPPF ---
Anes - Initial Pre Proc Eval Procedure: Operation Date: 07/08/20 13:30 Proposed Procedures p Esophagogastroduodenoscopy & Colonoscopy - Fredy Quinn MD Date/Time: 07/08/20 12:17 Surgeon: Florencio Dudley MD Pre Op Diagnosis: nausea, vomiting, lactic acidosis Patient Data Age: 65 Gender: F Height: 5 ft 3 in Weight: 72.1 kg Last Vital Signs Temp 97.0 F L 07/08/20 08:00 Pulse 118 H 07/08/20 10:32 Resp 18 07/08/20 08:00 BP 113/79 07/08/20 08:00 Pulse Ox 98 07/08/20 08:00 Allergies Allergy/AdvReac Type Severity Reaction Status Date / Time No Known Allergies Allergy Verified 07/06/20 04:03 Home Medications Medication Instructions Recorded Confirmed Type furosemide 40 mg PO DAILY 07/05/20 07/06/20 History hydrocodone-acetaminophen 1 tablet PO Q8H PRN 07/05/20 07/06/20 History lisinopril 2.5 mg PO HS 07/05/20 07/06/20 History metformin 500 mg PO BID 07/05/20 07/06/20 History metoprolol succinate 25 mg PO DAILY 07/05/20 07/06/20 History nicotine 1 patch TRANSDERMAL DAILY 07/05/20 07/06/20 History potassium chloride 20 meq PO DAILY 07/05/20 07/06/20 History Laboratory Tests 07/07/20 07/07/20 07/07/20 11:22 16:51 16:56 WBC RBC Hgb Hct MCV MCH MCHC RDW Plt Count MPV Sodium Potassium Chloride Carbon Dioxide Anion Gap BUN Creatinine Estim Creat Clear Calc Estimated GFR Glucose POC Capillary Glucose 250 mg/dl H mg/dl 202 mg/dl H mg/dl (65-105) (65-105) Lactic Acid Calcium Magnesium Iron TIBC % Saturation Ferritin Total Bilirubin AST ALT Alkaline Phosphatase Lactate Dehydrogenase Total Creatine Kinase Troponin I C-Reactive Protein Total Protein Albumin Lipase 21 U/L L U/L (23-300) 07/07/20 07/08/20 07/08/20 22:59 04:41 04:41 WBC 13.9 K/mm3 H K/mm3 (4.5-10.0) RBC 4.63 M/mm3 M/mm3 (4.2-5.4) Hgb 14.7 g/dL g/dL (12.0-15.0) Hct 42.6 % % (37.0-47.0) MCV 92.0 fl fl (80-100) MCH 31.7 pg pg (26-34) MCHC 34.5 g/dl g/dl (32-36) RDW 14.3 % % (11.5-14.5) Plt Count 214 k/mm3 k/mm3 (150-375) MPV 11.6 fl H fl (7.4-10.4) Sodium Potassium Chloride Carbon Dioxide Anion Gap BUN Creatinine Estim Creat Clear Calc Estimated GFR Glucose POC Capillary Glucose 200 mg/dl H mg/dl (65-105) Lactic Acid 1.5 mmol/L mmol/L (0.7-2.1) Calcium Magnesium Iron TIBC % Saturation Ferritin Total Bilirubin AST ALT Alkaline Phosphatase Lactate Dehydrogenase Total Creatine Kinase Troponin I C-Reactive Protein Total Protein Albumin Lipase 07/08/20 07/08/20 07/08/20 04:41 05:05 10:31 WBC RBC Hgb Hct MCV MCH MCHC RDW Plt Count MPV Sodium 129 mmol/L L mmol/L (137-145) Potassium 3.8 mmol/L mmol/L (3.4-5.0) Chloride 98 mmol/L mmol/L (98-107) Carbon Dioxide 20 mmol/L L mmol/L (22-30) Anion Gap 11 mmol/L mmol/L (8-16) BUN 37 mg/dL H mg/dL (7-17) Creatinine 1.30 mg/dL H
[2020-07-08] MEDS: ASPIRIN 325 MG TABLET PO (12:34)
[2020-07-08 12:39] LABS: Glucose Point of Care 221 (65-105)
--- NOTE | 2020-07-08 15:37 | WPDGIPROGNO ---
Progress Note: A&P Assessment and Plan (1) Nausea & vomiting: Code(s): R11.2 - Nausea with vomiting, unspecified Status: Acute Assessment and Plan: I was going to proceed with egd and colonoscopy today but she had Afib with rvr, high troponins (denies chest pain) procedure cancelled. she denies nausea now but has been npo ok to resume diet. Given NSTEMI with afib, we will cancel procedures for now when more stable then we can consider GI work up no signs of bleeding with normal hb, for now medical treatment with ppi (2) NSTEMI (non-ST elevated myocardial infarction): Code(s): I21.4 - Non-ST elevation (NSTEMI) myocardial infarction Status: Acute Assessment and Plan: cardiology evaluating patient no peripheral pulses (vasculopathic) (3) Atrial fibrillation with rapid ventricular response: Code(s): I48.91 - Unspecified atrial fibrillation Status: Acute Assessment and Plan: on medical therapy (4) Weight loss: Code(s): R63.4 - Abnormal weight loss Status: Acute Assessment and Plan: at some point also will require further work up including colonoscopy (5) Abnormal CT scan, gastrointestinal tract: Code(s): R93.3 - Abnormal findings on diagnostic imaging of other parts of digestive tract Status: Acute (6) PAD (peripheral artery disease): Code(s): I73.9 - Peripheral vascular disease, unspecified Status: Acute (7) Duodenitis: Code(s): K29.80 - Duodenitis without bleeding Status: Acute (8) Elevated LFTs: Code(s): R79.89 - Other specified abnormal findings of blood chemistry Status: Acute Assessment and Plan: had high ck, ldh and liver enzymes elevation but trending down work up in progress Subjective Date/time seen: 07/08/20 15:37 Interval history: patient had Afib with RVR today, then troponin was checked ~ 15. No signs of GIB, no melena Review of Systems Review of Systems: All systems reviewed & are unremarkable except as noted in HPI and below Exam Const: General: comfortable and no acute distress HENMT: General nose exam: Normal nares present Eyes: General: appearance normal, both eyes and all related structures Neck: Neck: no JVD Resp: Auscultation: clear to auscultation bilaterally Cardio: Rhythm: abnormal rhythm GI: Inspection: non-distended GI Palp: Yes Soft to palpation Auscultation: normal bowel sounds Skin: General skin exam: normal color Neuro: Speech: normal speech Extrem: General: normal to inspection Objective Data Vital Signs Vital Signs: Vital Signs - 24 hr 07/07/20 16:00 07/07/20 18:00 07/07/20 19:47 Temperature 96.8 F L 97.8 F Pulse Rate 95 94 99 Respiratory Rate 24 H 18 Blood Pressure 94/67 L 90/72 L Pulse Oximetry 98 97 07/07/20 20:00 07/07/20 21:52 07/07/20 23:37 Temperature 97.9 F Pulse Rate 97 99 92 Respiratory Rate 20 Blood Pressure 104/78 Pulse Oximetry 97 07/07/20 23:41 07/08/20 01:47 07/08/20 03:35 Temperature Pulse Rate 97 94 90 Respiratory Rate Blood Pressure Pulse Oximetry 07/08/20 04:00 07/08/20 05:28 07/08/20 05:45 Temperature 97.9 F 97.7 F Pulse Rate 89 148 H 138 H Respiratory Rate 20 22 H Blood Pressure 102/62 105/81 Pulse Oximetry 97 96 07/08/20 06:14 07/08/20 08:00 07/08/20 10:00 Temperature 97.0 F L Pulse Rate 110 H 111 H 113 H Respiratory Rate 18 Blood Pressure 110/83 113/79 Pulse Oximetry 98 07/08/20 10:32 07/08/20 11:20 07/08/20 12:00 Temperature Pulse Rate 118 H 112 H 79 Respiratory Rate Blood Pressure Pulse Oximetry 07/08/20 12:39 07/08/20 12:45 07/08/20 14:00 Temperature 95.4 F L Pulse Rate 76 74 74 Respiratory Rate 20 Blood Pressure 96/48 L Pulse Oximetry 100 Intake/Output Intake/Output: Intake & Output 07/05/20 07/06/20 07/07/20 07/08/20 23:59 23:59 23:59 23:59 Intake Total 4250 500 112 Output Total
--- NOTE | 2020-07-08 15:42 | PM.CNCAR ---
Assessment and Plan Additional Plan this is a 65-year-old white female being seen because of an episode of atrial fibrillation and elevation of troponin. Her electrocardiogram shows right bundle branch block and prior inferior infarction. She does have evidence of this on echocardiogram that was done recently at [facility]. She was admitted [facility] because of nausea and vomiting. At seems to be improved for the time being there has been no specific diagnosis made. Her transaminases and LDH are rather high and as of now this has not been explained either. Troponin levels were checked after the episode of atrial fibrillation and are significantly elevated. Under poor normal circumstances 1 would clearly recommend an consider a coronary angiogram at this time. The patient on physical exam no I confident has severe advanced peripheral vascular disease such that arterial access would likely be very challenging and possibly not even achievable at this hospital. To assess her coronary disease noninvasively am going to recommend a Lexiscan nuclear study to be done tomorrow. If we see a previous area of inferior infarction but no substantial ischemia in other vascular distribution I would treat her medically. If she does have a significant ischemic burden angiography would have to be considered and we will cross that bridge if and when we get to it. For the time being I would leave beta-santiago and JASPREET-inhibitor. Thank you for asking me to see this lady in consultation and participate in this challenging case Ellis Bagi MD [facility] History of Present Illness History of Present Illness Consult date/time: 07/08/20 15:42 Reason For Visit: nausea, vomiting, lactic acidosis Narrative: This is a 65-year-old lady am seeing at the request of the hospitalist this afternoon because of an episode of atrial fibrillation as well as elevation of her troponin level of sampled following the event. The patient denies any significant previous cardiac history initially but then she goes on to state that she was in the hospital at [place] within the last month or so and was told that she had congestive heart failure. She can't tell me any more about that in terms of what was going on while she was in the hospital or how that determination was made. The patient came to [facility] 3 days ago with complaints of nausea and vomiting and was found to have a significant lactic acidosis. The nausea and vomiting has been improved with hydration and supportive treatment but her specific diagnosis and will believe has been made. Her electrocardiogram on arrival shows a sinus mechanism with bifascicular block. She does have Q-waves in the inferior leads. Earlier today she developed an episode of atrial fibrillation with rapid ventricular response that was noted on telemetry. She had been on metoprolol which was held at that was resume she is currently back in sinus rhythm. Following that event troponin levels were done and they are significantly elevated in the range of 13. In this setting where seeing her in consultation. She denies any sense of chest pain pressure or heaviness she denies any other obvious cardiovascular symptoms. We do have some records of the hospitalization at [place] which did include an echocardiogram that was done showing akinesis of the inferior wall and a global ejection fraction of 35-40%. Patient indicates that she normally does not live in this area she lives in a town in the vicinity of [facility]. She is not aware of her previous cardiac diagnosis. In addition to diabetes she smokes tobacco heavily and has for many years. She denies any knowledge of significant peripheral vascular disease. In addition to that stated above the patient's laboratory data is remarkable for very high LDH level as and moderately elevated transaminases. She was to undergo upper and lower endoscopy for further evaluation of this th
[2020-07-08 17:33] LABS: Glucose Point of Care 198 (65-105)
[2020-07-08] MEDS: INSULIN GLARGINE (*BKC) 100 UNITS/ML 10 UNITS SUB-Q (20:58)
[2020-07-08 21:07] LABS: Glucose Point of Care 288 (65-105)
[2020-07-08 23:13] LABS: Glucose Point of Care 221 (65-105)
[2020-07-09] VITALS (14 sets, daily range): BP systolic 91–104; BP diastolic 62–74; PULSE 67–80; RESP 16–20; TEMP 36.2–36.6; O2SAT 76–100
--- NOTE | 2020-07-09 | ECHO_ITS ---
Patient Info Name: Courtney Guzman Age: 65 years : 1955 Gender: Female Ht: 63 in Wt: 159 lbs BSA: 1.81 m2 HR: 75 bpm BP: 91 / 68 mmHg Heart Rhythm: Sinus Rhythm Technical Quality: Good Exam Date: 07/09/2020 1:51 PM Exam Location: [facility] Pulmonary Patient Status: Inpatient Admit Date: 07/07/2020 Staff Ordering Physician: Sergio Singh MD Cook Roast: Omero Stanley RDCS Attending Provider: Clinton Dudley MD Referring Physician: Francisco RILEY; Exam Type: CA echo doppler color flow Study Info Indications I50.22 - Chronic systolic (congestive) heart failure Complete two-dimensional, color flow and Doppler transthoracic echocardiogram is performed. Strain analysis performed. History/Risk Factors Chronic systolic heart failure; elevated trops, COPD, HTN, Dm2, Afib. Summary 1. Complete two-dimensional, color flow and Doppler transthoracic echocardiogram is performed. 2. Mild left ventricular enlargement with severe global hypokinesis and akinesis of the inferior wall, distal septum and apex. The ejection fraction was calculated to be 18% by the biplane measured it and visually appears to be about 15%. There is mild left ventricular enlargement and hypertrophy. grade 2 diastolic dysfunction is present. In addition, the average global longitudinal strain was -3.3% which is severely abnormal. 3. Right ventricular chamber dimension is mildly enlarged, with moderate hypokinesis. Not well visualized.. 4. Left atrial chamber dimension is moderately enlarged. 5. There is severe mitral valve regurgitation in a broad-based jet. The Pisa was 0.8 cm. 6. There is moderate tricuspid valve regurgitation. 7. Dilated inferior vena cava with no collapse upon inspiration consistent with significantly elevated right atrial pressure, 15 mmHg. 8. Mild pulmonary hypertension, estimated pulmonary arterial systolic pressure is 41 mmHg. Left Ventricle Left ventricular chamber dimension is mildly enlarged. Left ventricular systolic function is severely reduced, estimated at 15-20%. There is mildly increased left ventricular wall thickness. Left ventricular septal wall motion is normal. The left ventricular diastolic function is grade II diastolic dysfunction. E/e' 21.5 is severely elevated. Mild left ventricular enlargement with severe global hypokinesis and akinesis of the inferior wall, distal septum and apex. The ejection fraction was calculated to be 18% by the biplane measured it and visually appears to be about 15%. There is mild left ventricular enlargement and hypertrophy. grade 2 diastolic dysfunction is present. In addition, the average global longitudinal strain was -3.3% which is severely abnormal. Right Ventricle Right ventricular chamber dimension is mildly enlarged, with moderate hypokinesis. Not well visualized.. Right ventricular systolic function is reduced. Left Atria Left atrial chamber dimension is moderately enlarged. Right Atria Right atrial chamber dimension is normal. Aortic Valve The aortic valve is trileaflet. There is moderate aortic valve sclerosis. There is no aortic valve stenosis. There is no aortic valve regurgitation. Pulmonic Valve The pulmonic valve is normal. There is no pulmonic valve stenosis. There is no pulmonic regurgitation. Mitral Valve The mitral valve has normal leaflets. There is no mitral valve stenosis. There is severe mitral valve regurgitation in a broad-based jet. The Pisa was 0.8 cm. Tricuspid Valve The tri
--- NOTE | 2020-07-09 | EST_ITS ---
Patient Info Name: Courtney Guzman Age: 65 years : 1955 Gender: Female Ht: 63 in Wt: 158 lbs BSA: 1.81 m2 Exam Date: 07/09/2020 11:37 AM Exam Location: [facility] Stress Patient Status: Inpatient Admit Date: 07/07/2020 Staff Ordering Physician: Yarely Vallejo APRN Attending Provider: Clinton Dudley MD Exercise Technologist: Tiesha Chase RDCS Exam Type: CA stress huyen w NM Study Info Indications - pad - elevated troponin A regadenoson stress test was performed. Summary 1. No abnormal ST-T wave changes with lexiscan. 2. Nuclear test results to follow. 3. Abnormal resting EKG. Protocol: Lexiscan Stress ECG Details Stage: REST Duration (min): 6 min : 44 sec HR (bpm): 75 SBP (mmHg): 104 DBP (mmHg): 80 Stage: REST Duration (min): 14 min : 38 sec HR (bpm): 75 SBP (mmHg): 104 DBP (mmHg): 80 Stage: STAGE 1 Duration (min): 1 min : 0 sec HR (bpm): 77 SBP (mmHg): 105 DBP (mmHg): 75 Stage: RECOVERY Duration (min): 1 min : 0 sec HR (bpm): 79 SBP (mmHg): 106 DBP (mmHg): 77 Stage: RECOVERY Duration (min): 2 min : 0 sec HR (bpm): 80 SBP (mmHg): 106 DBP (mmHg): 77 Stage: RECOVERY Duration (min): 3 min : 0 sec HR (bpm): 77 SBP (mmHg): 103 DBP (mmHg): 76 Stage: RECOVERY Duration (min): 3 min : 7 sec HR (bpm): 77 SBP (mmHg): 103 DBP (mmHg): 76 Rest HR: 75 bpm Peak HR: 81 bpm Rest Sys BP: 104 mmHg Peak Sys BP: 106 mmHg Max Pred HR: 156 bpm % Max Pred HR: 52 % Target HR: 133 bpm Max RPP: 8,586 bpm*mmHg BP Response: Abnormal flat blood pressure response during stress Termination Reason: Completed protocol Cardiac Symptoms: None Total Time: 1 min : 0 sec Rest Acharya BP: 80 mmHg Peak Acharya BP: 77 mmHg Total Dose: 0.4 mg Aminophylline Dose: 50 mg Resting ECG Normal sinus rhythm, right bundle-branch block, possible old inferior DE, poor R-wave progression cannot rule out old anterior DE, LVH. Patient had nausea with Lexiscan infusion relieved with aminophylline 50 mg IV push. Stress ECG No abnormal ST/T wave changes with exercise. Arrhythmias Occasional PVCs. Report Signatures
[2020-07-09 05:47] LABS: Glucose Point of Care 122 (65-105)
[2020-07-09 05:55] LABS: Basophils Percent Auto 0.1 % (0.2-1.2); Eosinophils Percent Auto 0.1 % (0-4.4); Hemoglobin 14.9 g/dL (12.0-15.0); Immature Granulocyte Percent A 0.6 % (0-0.5); Lymphocytes Percent Auto 20.8 % (18.3-44.2); Mean Corpuscular HGB Conc 33.9 g/dl (32-36); Mean Corpuscular Hemoglobin 31.4 pg (26-34); Mean Corpuscular Volume 92.8 fl (80-100); Mean Platelet Volume 12.1 fl (7.4-10.4); Monocytes Absolute Auto 1.1 K/mm3 (0.1-0.6); Monocytes Percent Auto 6.7 % (2.6-8.5); Neutrophils Absolute Auto 11.3 K/mm3 (1.3-6.7); Neutrophils Percent Auto 71.7 % (45.5-73.1); Nucleated Red Blood Cells Perc 0.2 % (0.0-0.2); Platelet Count Result 240 k/mm3 (150-375); Red Blood Count 4.74 M/mm3 (4.2-5.4); Red Cell Distribution Width 14.1 % (11.5-14.5); White Blood Count 15.8 K/mm3 (4.5-10.0)
[2020-07-09 06:06] LABS: Sodium 128 mmol/L (137-145)
[2020-07-09 06:17] LABS: Alanine Aminotransferase 634 U/L (4-35); Albumin Level 3.4 g/dL (3.5-5.1); Alkaline Phosphatase 109 U/L (38-126); Anion Gap 10 mmol/L (8-16); Aspartate Amino Transferase 542 U/L (14-36); Bilirubin,Total 2.1 mg/dL (0.2-1.3); Blood Urea Nitrogen 50 mg/dL (7-17); Calcium 8.6 mg/dL (8.4-10.2); Carbon Dioxide 23 mmol/L (22-30); Chloride 95 mmol/L (98-107); Creatine Kinase 78 U/L (30-135); Estimated CRCL calculation 31 ml/min; Estimated Glomerular Filt Rate 32; Glucose 116 mg/dL (65-105); Magnesium 2.9 mg/dL (1.6-2.3); Potassium 3.8 mmol/L (3.4-5.0)
[2020-07-09 06:59] LABS: Lactate Dehydrogenase 2739 U/L (313-618)
[2020-07-09] MEDS: PANTOPRAZOLE SODIUM IV 40 MG VIAL IV PUSH ×2 (09:35→20:43)
[2020-07-09] MEDS: TOLNAFTATE 1% POWDER 45 GM BTL 1 APPLIC TOPICAL ×2 (09:35→20:44)
--- NOTE | 2020-07-09 10:34 | PCOTNOTE ---
Attempted OT evaluation, pt just left unit for testing, will attempt OT evaluation at later time.
--- NOTE | 2020-07-09 12:27 | PM.PNCARD ---
Progress Note: A&P Assessment and Plan (1) NSTEMI (non-ST elevated myocardial infarction): Code(s): I21.4 - Non-ST elevation (NSTEMI) myocardial infarction Status: Acute Assessment and Plan: Troponin 07/08/2020: 15.5, 19.5, 17.8. Denies any chest discomfort or shortness of breath. Lexiscan pending. (2) Atrial fibrillation with rapid ventricular response: Code(s): I48.91 - Unspecified atrial fibrillation Status: Acute Assessment and Plan: No further atrial fibrillation noticed. (3) PAD (peripheral artery disease): Code(s): I73.9 - Peripheral vascular disease, unspecified Status: Acute Assessment and Plan: As per Dr. 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 (4) Nausea & vomiting: Code(s): R11.2 - Nausea with vomiting, unspecified Status: Acute Assessment and Plan: Workup in progress. EGD /Colonoscopy canceled due to elevated troponins. ischemic workup in progress. Additional Plan Further recommendations pending the outcome of the stress test. Plan discussed with Dr Martin 1230 07/09/2020 Subjective Date/time seen: 07/09/20 11:50 Seen in stress lab Interval history: Follow-up for: Atrial fibrillation, elevated troponin, abnormal EKG - right bundle branch block and prior inferior infarction. Date of service: 07/09/2020 Subjective: Uncomfortable laying on stiff transfer board. No chest discomfort or shortness of breath. Review of Systems Constitutional: Constitutional: Reports fatigue Comments: Back pain laying on transfer board Eyes: Eyes: Denies blurry vision ENT: Reports Normal hearing present and Denies dizziness Cardiovascular: Cardiovascular: Denies chest pain and Reports dyspnea Respiratory: Respiratory: Reports dyspnea Gastrointestinal: Gastrointestinal: Reports nausea and Reports vomiting Genitourinary: Genitourinary: Denies hematuria Musculoskeletal: Musculoskeletal: Reports arthralgias Integumentary/Breasts: Skin/Breast: Reports rash (under panus) Neurologic: Reports Normal hearing present and Reports weakness Endocrine: Endocrine: Reports fatigue Hematologic/Lymphatic: Hematologic/Lymphatic: Denies easy bleeding and Denies easy bruising Allergic/Immunologic: Allergic/Immunologic: Denies wheezing Exam Narrative: Exam Narrative: Seen in stress lab. Uncomfortable laying on stiff transfer board. No distress Const: General: no acute distress, ill appearing and uncomfortable Limitations: altered mental status HENMT: Mouth: Yes dry mucous membranes Eyes: Sclera: sclerae normal Pupils: Equal, round and reactive pupils present Neck: Neck: supple and no JVD Other: Intact carotid artery pulses bilaterally with no evident bruits. Resp: Effort & Inspection: normal respiratory effort and able to speak in complete sentences Auscultation: diminished lung sounds bilateral throughout Cardio: Rate: regular rate Rhythm: regular rhythm Other: Grade 2 holosystolic murmur at the left sternal border and at the apex. GI: Auscultation: normal bowel sounds Skin: Other: Extensive candidiasis in the femoral creases bilaterally. Very poor hygiene Neuro: Cranial nerves: Yes Equal, round and reactive pupils present Cognition (Neuro): normal cognition Extrem: Other: No peripheral edema . Lower extremities are cool. Very faint pedal pulses are noted. Radial pulses are palpable. Psych: Appearance: disheveled Speech and movement: Normal speech and movement present Affect: Blunted affect present Attitude: cooperative Thought content: Yes Normal thought content present Insight: Limited insight present (Psych) Judgement: Limited judgement present (Psych) Objective Data Vital Signs Vital Signs: Vital Sig
[2020-07-09 13:16] LABS: Glucose Point of Care 117 (65-105)
--- NOTE | 2020-07-09 13:44 | PCOTNOTE ---
OT evaluation attempted this date. Patient refusing therapy at this time stating that she will not do anything and wants to be left alone. OT encouraged patient and told patient benefits of movement and position changes, but patient continued to refuse. Will attempt OT evaluation at later time.
--- NOTE | 2020-07-09 15:03 | PCPTNOTE ---
Attempted PT eval. Pt was sleeping, woke her up. She refused therapy stating she wanted to sleep. Explained importance of therapy and she stated I'm not getting up, get out of my room. Mauri MUNGUIA encouraged pt to work w/ therapy and she still refused. Will try again tomorrow.
[2020-07-09 16:36] LABS: Glucose Point of Care 142 (65-105)
--- NOTE | 2020-07-09 16:51 | PM.IMPN ---
Progress Note: A&P Assessment and Plan (1) Atrial fibrillation with rapid ventricular response: Code(s): I48.91 - Unspecified atrial fibrillation Status: Acute Assessment and Plan: HR became elevated overnight 07/07 and found to have AFib/RVR but back to SR. She denies any hx of this but she seems unsure of her medical hx. No old records yet. TSH normal here. HR better controlled with Diltiazem. Echo EF now only 18%. Added back low dose metoprolol. . (2) Sepsis: Code(s): A41.9 - Sepsis, unspecified organism Status: Acute Assessment and Plan: Patient with sepsis symptoms present on admission with elevated white count tachycardia and lactic acidosis with soft BP. Lactic acid level trended down to normal. UA noted but probably contaminated specimen. BCx NGTD. CXR noted but doubt PNA. Etiology probably related to upper GI etiology. Consider gastritis/duodentis or gastroenteritis. LDH very high for unclear reasons. Rhabdo can contribute to this. No evidence of hemolysis. Concern for underlying malignancy. Continue Zosyn for now. Follow white count. (3) Nausea & vomiting: Code(s): R11.2 - Nausea with vomiting, unspecified Status: Acute Assessment and Plan: Patient with persistent nausea and vomiting that appears to be self-induced. She was educated about the benefits of not performing self induced vomiting. NPO currently. Zofran available as needed for nausea. (4) Abnormal CT scan, gastrointestinal tract: Code(s): R93.3 - Abnormal findings on diagnostic imaging of other parts of digestive tract Status: Acute Assessment and Plan: CT scan showing moderate amount of nonspecific fat stranding in the right upper quadrant surrounding the duodenum, in the gallbladder fossa and around pancreatic head. Consider peptic ulcer disease. RUQ US more benign findings. Repeat Lipase normal. Continue Protonix. Continue IV antibiotics for now. EGD planned but defer to GI about timing. [place] also planned since CT scan also showing rectal prominence. GI eval on hold with cardiac results (5) Elevated LFTs: Code(s): R79.89 - Other specified abnormal findings of blood chemistry Status: Acute Assessment and Plan: AST and ALT are elevated with some of this related to the rhabdomyolysis. CT showing unremarkable liver. She does have evidence of inflammatory changes around the liver which is contributing to elevated LFTs as well. RUQ US showing the liver has normal echogenicity and contour. There are no focal liver lesions identified. There is no evidence of intrahepatic biliary duct dilation. Hepatitis panel negative. AST better at 373 but ALT up to 449. LDH now 2370. TB unchanged at 1.4. Consider malignancy of the biliary system or inflammatory from duodenitis/PUD/penetrating ulcer. Consider also hepatic congestion given the abd US findings since patient was on IV fluids recently. Patient not significantly fluid overloaded by exam. Repeat Lipase remains normal. . Consider MRCP to further define if etiology still in question. (6) Rhabdomyolysis: Code(s): M62.82 - Rhabdomyolysis Status: Acute Assessment and Plan: Patient with mild rhabdomyolysis of unclear etiology. No myalgias. No recent falls or prolonged bedrest. Total CK is 1366 on admission but better at 147 today. She is not on statin therapy. Monitor closely if statin started. (7) Acidosis, lactic: Code(s): E87.2 - Acidosis Status: Acute Assessment and Plan: Patient with a lactic acidosis of 5.8 on admission. PH is normal. Etiology unclear but consider bowel ischemia versus sepsis. Repeat lactic acid is better at 1.5 10/5 . Metformin stopped. Continue Zosyn. (8) Leukocytosis: Code(s): D72.829 - Elevated white blood cell count, unspecified Status: Acute Assessment and Plan: White count 16K
[2020-07-09] MEDS: ASPIRIN 81 MG ENTERIC TABLET PO (17:29)
--- NOTE | 2020-07-09 17:40 | WPDGIPROGNO ---
Progress Note: A&P Assessment and Plan (1) NSTEMI (non-ST elevated myocardial infarction): Code(s): I21.4 - Non-ST elevation (NSTEMI) myocardial infarction Status: Acute Assessment and Plan: abnormal stress test with reversible ischemia and also noted low EF, cardiology on board and on medical therapy given poor peripheral pulses cardiac cath will be challenging. (2) Atrial fibrillation with rapid ventricular response: Code(s): I48.91 - Unspecified atrial fibrillation Status: Acute Assessment and Plan: on therapy (3) Abnormal CT scan, gastrointestinal tract: Code(s): R93.3 - Abnormal findings on diagnostic imaging of other parts of digestive tract Status: Acute Assessment and Plan: egd and colonoscopy on hold for now given recent acute NC with abnormal stress test no signs of bleeding continue supportive care (4) Weight loss: Code(s): R63.4 - Abnormal weight loss Status: Acute Assessment and Plan: we will need to reschedule scopes for another time when she is more stable from recent heart attack and cardiomyopathy (5) Nausea & vomiting: Code(s): R11.2 - Nausea with vomiting, unspecified Status: Acute Assessment and Plan: antiemetics prn and ppi daily (6) Sepsis: Code(s): A41.9 - Sepsis, unspecified organism Status: Acute Assessment and Plan: lactic acid resolved, on antibiotics (7) PAD (peripheral artery disease): Code(s): I73.9 - Peripheral vascular disease, unspecified Status: Acute (8) Elevated LFTs: Code(s): R79.89 - Other specified abnormal findings of blood chemistry Status: Acute Assessment and Plan: elevated lft's but also high ldh and cpk on admission hepatitis panel negative probably from sepsis, NC, etc Subjective Date/time seen: 07/09/20 17:40 Interval history: no report of nausea but her RN told me that she is not eating much, patient says that she feels weak. Review of Systems Review of Systems: All systems reviewed & are unremarkable except as noted in HPI and below Exam Const: General: comfortable and no acute distress HENMT: General nose exam: Normal nares present Eyes: General: appearance normal, both eyes and all related structures Neck: Neck: no JVD Resp: Auscultation: rales (few rales, no wheezes) Cardio: Rhythm: abnormal rhythm irregularly irregular GI: Inspection: non-distended GI Palp: Yes Soft to palpation and No Tenderness to palpation present (GI) Auscultation: normal bowel sounds Skin: General skin exam: normal color Neuro: Speech: normal speech Extrem: General: normal to inspection Objective Data Vital Signs Vital Signs: Vital Signs - 24 hr 07/08/20 18:00 07/08/20 20:00 07/08/20 21:29 Temperature 97 F L Pulse Rate 78 74 79 Respiratory Rate 22 H Blood Pressure 96/69 L Pulse Oximetry 100 07/08/20 23:06 07/08/20 23:20 07/09/20 02:00 Temperature 97.9 F Pulse Rate 69 88 74 Respiratory Rate 20 Blood Pressure 94/64 L Pulse Oximetry 97 07/09/20 04:00 07/09/20 06:00 07/09/20 08:00 Temperature 97.7 F 97.2 F L Pulse Rate 76 76 79 Respiratory Rate 18 16 Blood Pressure 99/62 L 91/68 L Pulse Oximetry 98 100 07/09/20 09:35 07/09/20 10:00 07/09/20 12:00 Temperature 97.1 F L Pulse Rate 76 76 80 Respiratory Rate 16 Blood Pressure 104/74 Pulse Oximetry 100 07/09/20 14:00 07/09/20 16:00 Temperature 97.2 F L Pulse Rate 76 76 Respiratory Rate 18 Blood Pressure 96/71 L Pulse Oximetry 76 L Intake/Output Intake/Output: Intake & Output 07/06/20 07/07/20 07/08/20 07/09/20 23:59 23:59 23:59 23:59 Intake Total 4250 500 1052 100 Output Total 500 200 Balance 3750 300 1052 100 Meds/Results Medications: Active Medications Generic Name Dose Route Start Last Admin Trade Name Freq PRN Reason Stop Dose Admin Albuterol 2.5 mg 07/07/20 16:39 Albuterol S
[2020-07-09 20:24] LABS: Glucose Point of Care 190 (65-105)
[2020-07-09] MEDS: INSULIN GLARGINE (*BKC) 100 UNITS/ML 10 UNITS SUB-Q (20:42)
[2020-07-09] MEDS: METOPROLOL TARTRATE 12.5 MG TABLET PO (20:43)
[2020-07-10] VITALS (15 sets, daily range): BP systolic 88–109; BP diastolic 65–79; PULSE 66–92; RESP 18–22; TEMP 36–36.5; O2SAT 90–100
[2020-07-10 05:16] LABS: Basophils Percent Auto 0.1 % (0.2-1.2); Eosinophils Percent Auto 0.3 % (0-4.4); Immature Granulocyte Percent A 0.7 % (0-0.5); Lymphocytes Absolute Auto 3.27 K/mm3 (0.9-3.2); Lymphocytes Percent Auto 22.9 % (18.3-44.2); Mean Corpuscular HGB Conc 34.1 g/dl (32-36); Mean Corpuscular Hemoglobin 32.2 pg (26-34); Mean Corpuscular Volume 94.4 fl (80-100); Mean Platelet Volume 12.2 fl (7.4-10.4); Monocytes Percent Auto 7.2 % (2.6-8.5); Neutrophils Absolute Auto 9.8 K/mm3 (1.3-6.7); Neutrophils Percent Auto 68.8 % (45.5-73.1); Nucleated Red Blood Cells Perc 0.2 % (0.0-0.2); Platelet Count Result 233 k/mm3 (150-375); Red Blood Count 4.66 M/mm3 (4.2-5.4); Red Cell Distribution Width 14.5 % (11.5-14.5); White Blood Count 14.3 K/mm3 (4.5-10.0)
[2020-07-10 05:33] LABS: Alanine Aminotransferase 598 U/L (4-35); Albumin Level 3.3 g/dL (3.5-5.1); Alkaline Phosphatase 112 U/L (38-126); Aspartate Amino Transferase 334 U/L (14-36); Bilirubin,Total 1.8 mg/dL (0.2-1.3)
[2020-07-10 05:38] LABS: Anion Gap 10 mmol/L (8-16); Blood Urea Nitrogen 53 mg/dL (7-17); Calcium 8.4 mg/dL (8.4-10.2); Carbon Dioxide 26 mmol/L (22-30); Chloride 92 mmol/L (98-107); Estimated CRCL calculation 33 ml/min; Estimated Glomerular Filt Rate 35; Glucose 123 mg/dL (65-105); Potassium 3.7 mmol/L (3.4-5.0); Sodium 128 mmol/L (137-145)
[2020-07-10 08:28] LABS: Glucose Point of Care 104 (65-105)
[2020-07-10] MEDS: PANTOPRAZOLE SODIUM IV 40 MG VIAL IV PUSH ×2 (08:33→20:41)
[2020-07-10] MEDS: ASPIRIN 81 MG ENTERIC TABLET PO (08:34)
[2020-07-10] MEDS: TOLNAFTATE 1% POWDER 45 GM BTL 1 APPLIC TOPICAL ×2 (08:39→20:43)
[2020-07-10] MEDS: lisinopriL 2.5 MG TABLET PO (11:42)
[2020-07-10] MEDS: SPIRONOLACTONE 12.5 MG TABLET PO (11:42)
[2020-07-10] MEDS: METOPROLOL SUCCINATE EXT REL 12.5 MG TABCR PO (11:42)
[2020-07-10 12:05] LABS: Glucose Point of Care 134 (65-105)
[2020-07-10 16:28] LABS: Glucose Point of Care 200 (65-105)
--- NOTE | 2020-07-10 16:47 | PM.PNCARD ---
Progress Note: A&P Assessment and Plan (1) NSTEMI (non-ST elevated myocardial infarction): Code(s): I21.4 - Non-ST elevation (NSTEMI) myocardial infarction Status: Acute Assessment and Plan: Troponin 07/08/2020: 15.5, 19.5, 17.8. Denies any chest discomfort or shortness of breath. Lexiscan 07/09/2020: Small regions of Manas supple ischemia at the basilar anterior lateral segment and apical lateral segment. Large moderate severity infarct involving the apical, apical inferior, mid inferior, basal inferior, mid inferior lateral and basal inferior lateral segments. Small reversible perfusion defect at the left ventricular margin with global hypokinesis and moderately decreased ejection fraction measuring 25%. Echocardiogram 07/09/2020: Mild LV enlargement with severe global hypokinesis and akinesis of the inferior wall, distal septum and apex. Ejection fraction was calculated to be 18% by the biplane measurements. Visually appeared 15%. Mild left ventricular enlargement with hypertrophy. Grade 2 diastolic dysfunction is present. Right ventricular chamber dimension is mildly enlarged with moderate hypokinesis. Left atrial dimension is moderately enlarged. Severe mitral valve regurgitation in a broad based jet. The [place] was 0.8 cm. Moderate tricuspid valve regurgitation. Dilated inferior vena cava with no collapse upon inspiration consistent with significantly elevated right atrial pressure, 15 mm Hg. Mild pulmonary hypertension, estimated pulmonary arterial systolic pressure 41 mm Hg. Cardiac catheterization would be recommended normally , however, due to her renal function, her PAD and her need for further work up of her GI symptoms she is not a good candidate. Her radial pulses are palpable but weak. I am unable to palpate a ulnar pulse. She does have Francine in her femoral folds. The nursing staff reports that this is improving with treatment. Discussed cardiac catheterization that certainly would be challenging due to the above mentioned issues. Cardiac catheterization versus medical management. At this time she would prefer medical management and find a project manager senior in [place], [place] where she will be moving to live with her son. She would like to find Dr. Devendra Escobar if he is still practicing in the area as he took care of her mother. We discussed also that due to her low ejection fraction even with medical management she has a risk for sudden cardiac . She verbalized an understanding of this discussion. She has been started on low-dose Metoprolol succinate, lisinopril and spironolactone. Will monitor renal function and blood pressure response. Ideally she should also be on dual antiplatelet therapy and a statin. ASA 81 mg has been started. Statin not started due her elevated LFTs. (2) Atrial fibrillation with rapid ventricular response: Code(s): I48.91 - Unspecified atrial fibrillation Status: Acute Assessment and Plan: No further atrial fibrillation on telemetry. (3) PAD (peripheral artery disease): Code(s): I73.9 - Peripheral vascular disease, unspecified Status: Acute Assessment and Plan: She would be a challenge to take to the labor training manager due to her significant peripheral arterial disease. At this time she prefers medical management. See arterial study below (4) Nausea & vomiting: Code(s): R11.2 - Nausea with vomiting, unspecified Status: Acute Assessment and Plan: Workup in progress. EGD /Colonoscopy canceled due to elevated troponins. Ischemic workup as above (5) Tobacco abuse: Code(s): Z72.0 - Tobacco use Status: Acute Additional Plan Smoking cessation discussed. Given her peripheral arterial disease as well as coronary disease smoking cessation is highly recommended. Ti
--- NOTE | 2020-07-10 16:55 | PM.IMPN ---
Progress Note: A&P Assessment and Plan (1) Atrial fibrillation with rapid ventricular response: Code(s): I48.91 - Unspecified atrial fibrillation Status: Acute Assessment and Plan: HR became elevated overnight 07/07 and found to have AFib/RVR but back to SR. She denies any hx of this but she seems unsure of her medical hx. No old records yet. TSH normal here. Echo EF now only 18%. Added back low dose metoprolol. . (2) Sepsis: Code(s): A41.9 - Sepsis, unspecified organism Status: Acute Assessment and Plan: Patient with sepsis symptoms present on admission with elevated white count tachycardia and lactic acidosis with soft BP. Lactic acid level trended down to normal. UA noted but probably contaminated specimen. BCx NGTD. CXR noted but doubt PNA. Etiology probably related to upper GI etiology. Consider gastritis/duodentis or gastroenteritis. LDH very high for unclear reasons. Rhabdo can contribute to this. No evidence of hemolysis. Concern for underlying malignancy. Continue Zosyn for now. Follow white count.and down to 14.3 today (3) Nausea & vomiting: Code(s): R11.2 - Nausea with vomiting, unspecified Status: Acute Assessment and Plan: Patient with persistent nausea and vomiting that appears to be self-induced. She was educated about the benefits of not performing self induced vomiting. Zofran available as needed for nausea. (4) Abnormal CT scan, gastrointestinal tract: Code(s): R93.3 - Abnormal findings on diagnostic imaging of other parts of digestive tract Status: Acute Assessment and Plan: CT scan showing moderate amount of nonspecific fat stranding in the right upper quadrant surrounding the duodenum, in the gallbladder fossa and around pancreatic head. Consider peptic ulcer disease. RUQ US more benign findings. Repeat Lipase normal. Continue Protonix. Continue IV antibiotics for now. EGD planned but defer to GI about timing. Colon also planned since CT scan also showing rectal prominence. GI eval on hold with cardiac results (5) Elevated LFTs: Code(s): R79.89 - Other specified abnormal findings of blood chemistry Status: Acute Assessment and Plan: AST and ALT are elevated with some of this related to the rhabdomyolysis. CT showing unremarkable liver. She does have evidence of inflammatory changes around the liver which is contributing to elevated LFTs as well. RUQ US showing the liver has normal echogenicity and contour. There are no focal liver lesions identified. There is no evidence of intrahepatic biliary duct dilation. Hepatitis panel negative. AST better at 334 but ALT up to 598. TB at 1.8 . Consider malignancy of the biliary system or inflammatory from duodenitis/PUD/penetrating ulcer. Consider also hepatic congestion given the abd US findings since patient was on IV fluids recently. Patient not significantly fluid overloaded by exam. Repeat Lipase remains normal. . Consider MRCP to further define if etiology still in question. (6) Rhabdomyolysis: Code(s): M62.82 - Rhabdomyolysis Status: Acute Assessment and Plan: Patient with mild rhabdomyolysis of unclear etiology. No myalgias. No recent falls or prolonged bedrest. Total CK is 1366 on admission but better at 147 10/6 . She is not on statin therapy. Monitor closely if statin started. (7) Acidosis, lactic: Code(s): E87.2 - Acidosis Status: Acute Assessment and Plan: Patient with a lactic acidosis of 5.8 on admission. PH is normal. Etiology unclear but consider bowel ischemia versus sepsis. Repeat lactic acid is better at 1.5 10/5 . Metformin stopped. Continue Zosyn. (8) Leukocytosis: Code(s): D72.829 - Elevated white blood cell count, unspecified Status: Acute Assessment and Plan: White count 16K on admission. Related to above. Repeat WBC better
[2020-07-10 20:10] LABS: Glucose Point of Care 218 (65-105)
[2020-07-10] MEDS: INSULIN GLARGINE (*BKC) 100 UNITS/ML 10 UNITS SUB-Q (20:36)
[2020-07-10] MEDS: INSULIN ASPART (*BKC) 100 UNITS/ML SUB-Q (20:39)
[2020-07-11] VITALS (13 sets, daily range): BP systolic 86–114; BP diastolic 61–74; PULSE 59–79; RESP 12–18; TEMP 35.8–36.3; O2SAT 94–100
[2020-07-11 06:10] LABS: Basophils Percent Auto 0.2 % (0.2-1.2); Eosinophils Absolute Auto 0.1 K/mm3 (0-0.3); Eosinophils Percent Auto 0.6 % (0-4.4); Hematocrit 44.1 % (37.0-47.0); Hemoglobin 15.3 g/dL (12.0-15.0); Immature Granulocyte Absolute 0.07 K/mm3 (0.00-0.031); Immature Granulocyte Percent A 0.6 % (0-0.5); Lymphocytes Absolute Auto 2.96 K/mm3 (0.9-3.2); Lymphocytes Percent Auto 26.5 % (18.3-44.2); Mean Corpuscular HGB Conc 34.7 g/dl (32-36); Mean Corpuscular Hemoglobin 31.4 pg (26-34); Mean Corpuscular Volume 90.6 fl (80-100); Mean Platelet Volume 11.9 fl (7.4-10.4); Monocytes Absolute Auto 0.8 K/mm3 (0.1-0.6); Monocytes Percent Auto 7.1 % (2.6-8.5); Neutrophils Absolute Auto 7.3 K/mm3 (1.3-6.7); Platelet Count Result 236 k/mm3 (150-375); Red Blood Count 4.87 M/mm3 (4.2-5.4); White Blood Count 11.2 K/mm3 (4.5-10.0)
[2020-07-11 06:29] LABS: Alanine Aminotransferase 458 U/L (4-35); Albumin Level 3.5 g/dL (3.5-5.1); Alkaline Phosphatase 113 U/L (38-126); Anion Gap 10 mmol/L (8-16); Aspartate Amino Transferase 173 U/L (14-36); Bilirubin,Total 1.8 mg/dL (0.2-1.3); Blood Urea Nitrogen 46 mg/dL (7-17); Calcium 8.4 mg/dL (8.4-10.2); Carbon Dioxide 23 mmol/L (22-30); Chloride 93 mmol/L (98-107); Estimated CRCL calculation 45 ml/min; Estimated Glomerular Filt Rate 50; Glucose 67 mg/dL (65-105); Potassium 3.7 mmol/L (3.4-5.0); Sodium 126 mmol/L (137-145)
[2020-07-11 06:39] LABS: Lactate Dehydrogenase 1555 U/L (313-618)
[2020-07-11 06:40] LABS: Glucose Point of Care 91 (65-105)
[2020-07-11] MEDS: lisinopriL 2.5 MG TABLET PO (08:11)
[2020-07-11] MEDS: ASPIRIN 81 MG ENTERIC TABLET PO (08:11)
[2020-07-11] MEDS: SPIRONOLACTONE 12.5 MG TABLET PO (08:11)
[2020-07-11] MEDS: oxyCODONE HCL (*CRX) 5 MG TAB IR PO (08:12)
[2020-07-11] MEDS: PANTOPRAZOLE SODIUM IV 40 MG VIAL IV PUSH ×2 (08:13→20:47)
[2020-07-11] MEDS: TOLNAFTATE 1% POWDER 45 GM BTL 1 APPLIC TOPICAL ×2 (08:13→20:51)
[2020-07-11 08:14] LABS: Glucose Point of Care 82 (65-105)
[2020-07-11] MEDS: METOPROLOL SUCCINATE EXT REL 12.5 MG TABCR PO (09:13)
--- NOTE | 2020-07-11 09:42 | PM.PNCARD ---
Progress Note: A&P Assessment and Plan (1) NSTEMI (non-ST elevated myocardial infarction): Code(s): I21.4 - Non-ST elevation (NSTEMI) myocardial infarction Status: Acute Assessment and Plan: Refer to note from 07/10/2020 for details of stress test and echo. No chest discomfort or shortness of breath. Denies lightheadedness. Continue aspirin, lisinopril, Metoprolol succinate, spironolactone. Statin not started due to her liver function. Should be addressed as an outpatient. (2) Atrial fibrillation with rapid ventricular response: Code(s): I48.91 - Unspecified atrial fibrillation Status: Acute Assessment and Plan: No further atrial fibrillation on telemetry. (3) PAD (peripheral artery disease): Code(s): I73.9 - Peripheral vascular disease, unspecified Status: Acute Assessment and Plan: See arterial study. (4) Nausea & vomiting: Code(s): R11.2 - Nausea with vomiting, unspecified Status: Acute Assessment and Plan: Workup in progress. EGD /Colonoscopy canceled due to elevated troponins. Ischemic workup is complete. She is not a candidate to take the physical laboratory assistant nor does she desire cardiac catheterization (5) Tobacco abuse: Code(s): Z72.0 - Tobacco use Status: Acute Assessment and Plan: Smoking cessation discussed. She responded do not mention that Additional Plan No further cardiac recommendations. Will follow-up p.r.n.. 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 She will need establish a cardiology and be seen 1-[address] Martin [id number] 07/11/2020 Subjective Date/time seen: 07/11/20 09:42 Interval history: Follow-up for: Atrial fibrillation, elevated troponin, abnormal EKG - right bundle branch block and prior inferior infarction, abnormal nuclear stress test and ischemic cardiomyopathy. Date of service: 07/11/2020 Subjective: No chest discomfort, shortness of breath or lightheadedness Review of Systems Constitutional: Constitutional: Reports fatigue and Reports weakness Eyes: Eyes: Denies blurry vision ENT: Reports Normal hearing present Cardiovascular: Cardiovascular: Denies chest pain, Denies rapid heart rate, Denies pedal edema, Reports lightheadedness (None toda) and Denies dyspnea Respiratory: Respiratory: Denies cough, Denies dyspnea and Denies wheezing Gastrointestinal: Gastrointestinal: Reports nausea ( none ) and Reports vomiting ( none ) Genitourinary: Genitourinary: Denies hematuria Musculoskeletal: Musculoskeletal: Reports arthralgias Integumentary/Breasts: Skin/Breast: Reports rash (femoral folds improving) Neurologic: Reports Normal hearing present and Reports weakness Psychiatric: Psychiatric: Reports depression Endocrine: Endocrine: Reports fatigue Hematologic/Lymphatic: Hematologic/Lymphatic: Denies easy bleeding and Denies easy bruising Allergic/Immunologic: Allergic/Immunologic: Denies wheezing Exam Narrative: Exam Narrative: In bed with head of bed elevated. Eating breakfast. Just wants to go home so she can move to [place], [place] with her son. Did not sleep as she needs to sleep on a couch Const: General: no acute distress, ill appearing and uncomfortable Nutritional Appearance: overweight Limitations: altered mental status Other: HENMT: Head: normal to inspection and atraumatic Ears: hearing grossly normal bilaterally General nose exam: Normal external nose present Mouth: Yes moist mucous membranes Eyes: Sclera: sclerae normal Pupils: Equal, round and reactive pupils present Neck: Neck: supple Other: Intact carotid artery pulses bilaterally with no evident bruits. Resp: Effort & Inspection: normal respiratory effort
[2020-07-11 12:20] LABS: Glucose Point of Care 212 (65-105)
[2020-07-11] MEDS: INSULIN ASPART (*BKC) 100 UNITS/ML SUB-Q (12:22)
[2020-07-11 16:32] LABS: Glucose Point of Care 142 (65-105)
--- NOTE | 2020-07-11 18:08 | PM.IMPN ---
Progress Note: A&P Assessment and Plan (1) Atrial fibrillation with rapid ventricular response: Code(s): I48.91 - Unspecified atrial fibrillation Status: Acute Assessment and Plan: HR became elevated overnight 07/07 and found to have AFib/RVR but back to SR. She denies any hx of this but she seems unsure of her medical hx. No old records yet. TSH normal here. Echo EF now only 18%. Added back low dose metoprolol. . (2) Sepsis: Code(s): A41.9 - Sepsis, unspecified organism Status: Acute Assessment and Plan: Patient with sepsis symptoms present on admission with elevated white count tachycardia and lactic acidosis with soft BP. Lactic acid level trended down to normal. UA noted but probably contaminated specimen. BCx NGTD. CXR noted but doubt PNA. Etiology probably related to upper GI etiology. Consider gastritis/duodentis or gastroenteritis. LDH very high for unclear reasons. Rhabdo can contribute to this. No evidence of hemolysis. Concern for underlying malignancy. Continue Zosyn . Follow white count.and down to 12K today (3) Nausea & vomiting: Code(s): R11.2 - Nausea with vomiting, unspecified Status: Acute Assessment and Plan: Patient with persistent nausea and vomiting that appears to be self-induced. She was educated about the benefits of not performing self induced vomiting. Zofran available as needed for nausea. (4) Abnormal CT scan, gastrointestinal tract: Code(s): R93.3 - Abnormal findings on diagnostic imaging of other parts of digestive tract Status: Acute Assessment and Plan: CT scan showing moderate amount of nonspecific fat stranding in the right upper quadrant surrounding the duodenum, in the gallbladder fossa and around pancreatic head. Consider peptic ulcer disease. RUQ US more benign findings. Repeat Lipase normal. Continue Protonix. Continue IV antibiotics for now. EGD planned but defer to GI about timing. Colon also planned since CT scan also showing rectal prominence. GI eval on hold with cardiac results (5) Elevated LFTs: Code(s): R79.89 - Other specified abnormal findings of blood chemistry Status: Acute Assessment and Plan: AST and ALT are elevated with some of this related to the rhabdomyolysis. CT showing unremarkable liver. She does have evidence of inflammatory changes around the liver which is contributing to elevated LFTs as well. RUQ US showing the liver has normal echogenicity and contour. There are no focal liver lesions identified. There is no evidence of intrahepatic biliary duct dilation. Hepatitis panel negative. AST better at 173 but ALT up to 458. TB at 1.8 . Consider malignancy of the biliary system or inflammatory from duodenitis/PUD/penetrating ulcer. Consider also hepatic congestion given the abd US findings since patient was on IV fluids recently. Patient not significantly fluid overloaded by exam. Repeat Lipase remains normal. . (6) Rhabdomyolysis: Code(s): M62.82 - Rhabdomyolysis Status: Acute Assessment and Plan: Patient with mild rhabdomyolysis of unclear etiology. No myalgias. No recent falls or prolonged bedrest. Total CK is 1366 on admission but better at 147 10/6 . She is not on statin therapy. Monitor closely if statin started. (7) Acidosis, lactic: Code(s): E87.2 - Acidosis Status: Acute Assessment and Plan: Patient with a lactic acidosis of 5.8 on admission. PH is normal. Etiology unclear but consider bowel ischemia versus sepsis. Repeat lactic acid is better at 1.5 10/5 . Metformin stopped. Continue Zosyn. (8) Leukocytosis: Code(s): D72.829 - Elevated white blood cell count, unspecified Status: Acute Assessment and Plan: White count 16K on admission. Related to above. Repeat WBC better today, 12K . Continue to monitor. (9) COPD (chronic obstructive
[2020-07-11 20:38] LABS: Glucose Point of Care 198 (65-105)
[2020-07-11] MEDS: INSULIN GLARGINE (*BKC) 100 UNITS/ML 10 UNITS SUB-Q (20:55)
[2020-07-12] VITALS (9 sets, daily range): BP systolic 92–115; BP diastolic 68–76; PULSE 66–73; RESP 16–22; TEMP 36.2–36.4; O2SAT 96–100
[2020-07-12 04:22] LABS: Glucose Point of Care 149 (65-105)
[2020-07-12 05:38] LABS: Basophils Percent Auto 0.2 % (0.2-1.2); Eosinophils Absolute Auto 0.1 K/mm3 (0-0.3); Eosinophils Percent Auto 0.8 % (0-4.4); Hematocrit 45.6 % (37.0-47.0); Hemoglobin 15.2 g/dL (12.0-15.0); Immature Granulocyte Absolute 0.04 K/mm3 (0.00-0.031); Immature Granulocyte Percent A 0.4 % (0-0.5); Lymphocytes Absolute Auto 2.21 K/mm3 (0.9-3.2); Lymphocytes Percent Auto 22.4 % (18.3-44.2); Mean Corpuscular HGB Conc 33.3 g/dl (32-36); Mean Corpuscular Hemoglobin 31.1 pg (26-34); Mean Corpuscular Volume 93.4 fl (80-100); Mean Platelet Volume 11.4 fl (7.4-10.4); Monocytes Absolute Auto 0.5 K/mm3 (0.1-0.6); Monocytes Percent Auto 5.5 % (2.6-8.5); Neutrophils Percent Auto 70.7 % (45.5-73.1); Platelet Count Result 208 k/mm3 (150-375); Red Blood Count 4.88 M/mm3 (4.2-5.4); Red Cell Distribution Width 14.5 % (11.5-14.5); White Blood Count 9.9 K/mm3 (4.5-10.0)
[2020-07-12 06:20] LABS: Glucose Point of Care 101 (65-105)
[2020-07-12 07:08] LABS: Alanine Aminotransferase 325 U/L (4-35); Albumin Level 3.3 g/dL (3.5-5.1); Alkaline Phosphatase 107 U/L (38-126); Anion Gap 8 mmol/L (8-16); Aspartate Amino Transferase 95 U/L (14-36); Bilirubin,Total 1.6 mg/dL (0.2-1.3); Blood Urea Nitrogen 35 mg/dL (7-17); Calcium 8.2 mg/dL (8.4-10.2); Carbon Dioxide 24 mmol/L (22-30); Chloride 95 mmol/L (98-107); Estimated CRCL calculation 54 ml/min; Estimated Glomerular Filt Rate > 60; Glucose 100 mg/dL (65-105); Lactate Dehydrogenase 1210 U/L (313-618); Potassium 3.9 mmol/L (3.4-5.0); Sodium 127 mmol/L (137-145)
[2020-07-12 08:41] LABS: Glucose Point of Care 138 (65-105)
[2020-07-12] MEDS: PANTOPRAZOLE SODIUM IV 40 MG VIAL IV PUSH (09:46)
[2020-07-12] MEDS: oxyCODONE HCL (*CRX) 5 MG TAB IR PO (09:46)
[2020-07-12] MEDS: ASPIRIN 81 MG ENTERIC TABLET PO (09:46)
[2020-07-12] MEDS: lisinopriL 2.5 MG TABLET PO (09:47)
[2020-07-12] MEDS: METOPROLOL SUCCINATE EXT REL 12.5 MG TABCR PO (09:47)
[2020-07-12] MEDS: SPIRONOLACTONE 12.5 MG TABLET PO (09:47)
[2020-07-12] MEDS: TOLNAFTATE 1% POWDER 45 GM BTL 1 APPLIC TOPICAL (09:48)
--- NOTE | 2020-07-17 11:49 | PM.DS ---
DS: Admitting Diagnosis Admitting Diagnosis Admitting Diagnosis: nausea, vomiting, lactic acidosis DS: Discharge Diagnosis Discharge Diagnosis (1) Atrial fibrillation with rapid ventricular response: Code(s): I48.91 - Unspecified atrial fibrillation Status: Acute Assessment and Plan: HR became elevated overnight 07/07 and found to have AFib/RVR but back to SR. She denies any hx of this but she seems unsure of her medical hx. . TSH normal here. Echo EF now only 18%. Added back low dose metoprolol. . (2) Sepsis: Code(s): A41.9 - Sepsis, unspecified organism Status: Acute Assessment and Plan: Patient with sepsis symptoms present on admission with elevated white count tachycardia and lactic acidosis with soft BP. Lactic acid level trended down to normal. UA noted but probably contaminated specimen. BCx NGTD. CXR noted but doubt PNA. Etiology probably related to upper GI etiology. Consider gastritis/duodentis or gastroenteritis. LDH very high for unclear reasons. Rhabdo can contribute to this. No evidence of hemolysis. Concern for underlying malignancy. Continued Zosyn while here but no antibiotics on discharge. Follow white count.and normal at discharge (3) Nausea & vomiting: Code(s): R11.2 - Nausea with vomiting, unspecified Status: Acute Assessment and Plan: Patient with persistent nausea and vomiting that appears to be self-induced. She was educated about the benefits of not performing self induced vomiting. Zofran available as needed for nausea. (4) Abnormal CT scan, gastrointestinal tract: Code(s): R93.3 - Abnormal findings on diagnostic imaging of other parts of digestive tract Status: Acute Assessment and Plan: CT scan showing moderate amount of nonspecific fat stranding in the right upper quadrant surrounding the duodenum, in the gallbladder fossa and around pancreatic head. Consider peptic ulcer disease. RUQ US more benign findings. Repeat Lipase normal. Continued Protonix. Continued IV antibiotics while here. EGD planned but defer to GI .. Colon also planned since CT scan also showing rectal prominence. GI eval on hold with cardiac results (5) Elevated LFTs: Code(s): R79.89 - Other specified abnormal findings of blood chemistry Status: Acute Assessment and Plan: AST and ALT are elevated with some of this related to the rhabdomyolysis. CT showing unremarkable liver. She does have evidence of inflammatory changes around the liver which is contributing to elevated LFTs as well. RUQ US showing the liver has normal echogenicity and contour. There are no focal liver lesions identified. There is no evidence of intrahepatic biliary duct dilation. Hepatitis panel negative. AST better at 173 but ALT up to 458. TB at 1.8 . Consider malignancy of the biliary system or inflammatory from duodenitis/PUD/penetrating ulcer. Consider also hepatic congestion given the abd US findings since patient was on IV fluids recently. Patient not significantly fluid overloaded by exam. Repeat Lipase remains normal. . She will need GI follow up on d/c (6) Rhabdomyolysis: Code(s): M62.82 - Rhabdomyolysis Status: Acute Assessment and Plan: Patient with mild rhabdomyolysis of unclear etiology. No myalgias. No recent falls or prolonged bedrest. Total CK is 1366 on admission but better at 147 10/6 . She is not on statin therapy. Monitor closely if statin started. (7) Acidosis, lactic: Code(s): E87.2 - Acidosis Status: Acute Assessment and Plan: Patient with a lactic acidosis of 5.8 on admission. PH is normal. Etiology unclear but considered bowel ischemia initailly versus sepsis. Repeat lactic acid is better at 1.5 10/5 . Metformin stopped but restarted on d/c.. Continued Zosyn.while inpatient (8) Leukocytosis: Code(s): D72.829 - Elevated white blo
== END 2020-07-12 17:48 | disposition home or self-care (01) | DRG 720 ==
LOC: ANHED 07-06 03:28 → ANHIMU 07-06 03:41
PROVIDERS: Internal Medicine; Internal Medicine Gastroenterology; Admitting Provider Internal Medicine; Emergency Provider General Practice; Visit Provider Internal Medicine
DX: A41.9 Sepsis, unspecified organism (principal); K29.80 Duodenitis without bleeding; K29.70 Gastritis, unspecified, without bleeding; K52.9 Noninfective gastroenteritis and colitis, unspecified; I48.91 Unspecified atrial fibrillation; R79.89 Other specified abnormal findings of blood chemistry; M62.82 Rhabdomyolysis; I21.4 Non-ST elevation (NSTEMI) myocardial infarction; E87.2 Acidosis; D72.829 Elevated white blood cell count, unspecified; I11.0 Hypertensive heart disease with heart failure; I50.22 Chronic systolic (congestive) heart failure; J44.9 Chronic obstructive pulmonary disease, unspecified; E27.8 Other specified disorders of adrenal gland; I73.9 Peripheral vascular disease, unspecified; E27.9 Disorder of adrenal gland, unspecified; G89.4 Chronic pain syndrome; R63.4 Abnormal weight loss; N28.9 Disorder of kidney and ureter, unspecified; B35.4 Tinea corporis; F17.210 Nicotine dependence, cigarettes, uncomplicated; E87.1 Hypo-osmolality and hyponatremia; E11.42 Type 2 diabetes mellitus with diabetic polyneuropathy; M19.90 Unspecified osteoarthritis, unspecified site; I45.10 Unspecified right bundle-branch block
CPT/HCPCS: 36415; 36600; 51701; 71045; 71046; 74177; 76705; 76775; 78452; 80048; 80053; 80061; 80074; 80076; 81001; 82375; 82533; 82550; 82607; 82728; 82746; 82805; 83036; 83050; 83540; 83550; 83605; 83615; 83690; 83735; 84100; 84443; 84484; 85025; 85027; 86140; 87040; 93005; 93017; 93306; 93923; 93971; 94762; 96361; 96365; 96366; 96374; 96375; 96376; 97110; 97161; 97166; 97530; 97535; 99291; A9270; A9502; C9113; G0378; G0379; J0280; J1815; J2405; J2543; J2765; J2785; J7030; J7040; J7120; Q9967